=== PATIENT | male | born 1960 | race Caucasian/White ===

== ENCOUNTER 2017-05-22 19:33 | Emergency (ER) | payer OTHER, SELFPAY ==
[2017-05-22 19:33] VITALS: BP 149/76; PULSE 67; RESP 16; TEMP 36.1; O2SAT 96; BMI 50.2
[2017-05-22] MEDS: Diphth,Pertuss(Acell),Tet Vac 0.5 ML Vial IM (20:00)
[2017-05-22 20:05] VITALS: RESP 18
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
[2017-05-22 20:29] VITALS: RESP 18
== END 2017-05-22 20:30 | disposition home or self-care (01) ==
LOC: ED 20:15
PROVIDERS: Emergency Provider Emergency Medicine; Family Provider Family Medicine; PCP Family Medicine
DX: S81.812A Laceration without foreign body, left lower leg, initial encounter (principal); E66.9 Obesity, unspecified; I10 Essential (primary) hypertension; W22.8XXA Striking against or struck by other objects, initial encounter; Y93.9 Activity, unspecified; Y92.9 Unspecified place or not applicable; Z79.84 Long term (current) use of oral hypoglycemic drugs; Z79.899 Other long term (current) drug therapy
CPT/HCPCS: 12002; 90715; 99283

== ENCOUNTER → 2017-06-01 13:02 | Outpatient (CLI) | payer OTHER, SELFPAY ==
[2017-06-01 14:27] LABS: ALB/GLOB Ratio 0.8 RATIO (0.9-2.4); AST(SGOT) 22 U/L (15-37); Alanine Aminotransfer ALT/SGPT 30 U/L (16-61); Albumin, Serum 3.1 g/dL (3.2-5.0); Alkaline Phosphatase 83 U/L (45-117); Anion Gap 7 (5-15); BUN 21 mg/dL (7-18); BUN/Creat Ratio 20.2 RATIO (10-20); Calcium,Total 8.3 mg/dL (8.5-10.1); Chloride 101 mmol/L (98-107); Cholesterol 143 mg/dL (200); Creatinine, Serum 1.04 mg/dL (0.70-1.30); EST Glomerular Filtration Rate 78 mL/min (>60); Est Glom Filt Rate - Afr Amer 94 mL/min (>60); Glucose 185 mg/dL (74-106); High Density Lipoprotein 40 mg/dL; Potassium 3.6 mmol/L (3.5-5.1); Protein, Total 7.1 g/dL (6.4-8.2); Sodium Level 140 mmol/L (136-145); Triglycerides 164 mg/dL; Very Low Density Lipoprotein 33 mg/dL (5-40)
== END ==
PROVIDERS: Family Provider Family Medicine; PCP Family Medicine; Visit Provider Family Medicine
DX: I10 Essential (primary) hypertension (principal); Z13.220 Encounter for screening for lipoid disorders
CPT/HCPCS: 36415; 80053; 80061

== ENCOUNTER → 2017-06-16 09:04 | Outpatient (CLI) | payer OTHER, SELFPAY | PROVIDERS: Family Provider Family Medicine; PCP Family Medicine; Visit Provider Family Medicine | DX: R19.7 Diarrhea, unspecified (principal) | CPT/HCPCS: 87177; 87209; 87493; 87506 ==

== ENCOUNTER → 2018-05-27 15:08 | Outpatient (CLI) | payer OTHER, SELFPAY ==
[2018-05-27 16:43] LABS: ALB/GLOB Ratio 0.8 RATIO (0.9-2.4); AST(SGOT) 27 U/L (15-37); Alanine Aminotransfer ALT/SGPT 36 U/L (16-61); Albumin, Serum 3.2 g/dL (3.2-5.0); Alkaline Phosphatase 82 U/L (45-117); Anion Gap 4 (5-15); BUN 21 mg/dL (7-18); Calcium,Total 8.6 mg/dL (8.5-10.1); Chloride 102 mmol/L (98-107); Cholesterol 140 mg/dL (200); EST Glomerular Filtration Rate 81 mL/min (>60); Est Glom Filt Rate - Afr Amer 98 mL/min (>60); Glucose 157 mg/dL (74-106); High Density Lipoprotein 39 mg/dL; Potassium 3.6 mmol/L (3.5-5.1); Protein, Total 7.2 g/dL (6.4-8.2); Sodium Level 138 mmol/L (136-145); Triglycerides 131 mg/dL; Very Low Density Lipoprotein 26 mg/dL (5-40)
[2018-05-27 16:45] LABS: Hemoglobin A1c 7.3 % (4.2-6.3)
== END ==
PROVIDERS: Family Provider Family Medicine; PCP Family Medicine; Referring Provider Family Medicine; Visit Provider Family Medicine
DX: E11.65 Type 2 diabetes mellitus with hyperglycemia (principal); I10 Essential (primary) hypertension; Z13.220 Encounter for screening for lipoid disorders
CPT/HCPCS: 36415; 80053; 80061; 83036

== ENCOUNTER → 2018-10-13 | Outpatient (CLI) | payer OTHER, SELFPAY | END | disposition home or self-care (01) | LOC: LABSPEC 15:53 | PROVIDERS: Family Provider Family Medicine; PCP Family Medicine; Referring Provider Otolaryngology Otolaryngology/Facial Plastic Surgery; Visit Provider Otolaryngology Otolaryngology/Facial Plastic Surgery | DX: J32.9 Chronic sinusitis, unspecified (principal) | CPT/HCPCS: 87070; 87205 ==

== ENCOUNTER → 2018-12-22 11:57 | Outpatient (CLI) | payer OTHER, SELFPAY ==
[2018-12-22 13:51] LABS: Anion Gap 5 (5-15); BUN 23 mg/dL (7-18); Chloride 102 mmol/L (98-107); Creatinine, Serum 0.96 mg/dL (0.70-1.30); EST Glomerular Filtration Rate 85 mL/min (>60); Est Glom Filt Rate - Afr Amer 103 mL/min (>60); Glucose 143 mg/dL (74-106); Potassium 3.5 mmol/L (3.5-5.1); Sodium Level 138 mmol/L (136-145)
[2018-12-22 13:56] LABS: Hemoglobin A1c 7.1 % (4.2-6.3)
== END ==
PROVIDERS: Family Provider Family Medicine; PCP Family Medicine; Referring Provider Family Medicine; Visit Provider Family Medicine
DX: I10 Essential (primary) hypertension (principal); E11.65 Type 2 diabetes mellitus with hyperglycemia
CPT/HCPCS: 36415; 80048; 83036

== ENCOUNTER → 2018-12-24 15:29 | Outpatient (CLI) | payer OTHER, SELFPAY ==
--- NOTE | 2018-12-24 15:32 | CT_ITS ---
STUDY: CT BRAIN AND SINUSES WITHOUT CONTRAST REASON FOR EXAM: Male, 58 years old. Sinusitis, right ear pain. RADIATION DOSAGE (If Supplied By Facility): CTDIvol = ( 29.38 ) mGy, DLP = ( 429.92 ) mGycm TECHNIQUE: Transaxial CT imaging of the brain was performed without administration of contrast. Individualized dose optimization techniques were used for this CT. COMPARISON: No relevant priors. FINDINGS: CT BRAIN Note to be made that only anterior and mid inferior aspect of the brain is included in the [id number]. Within the limits of the study, the visualized soft tissue structures are normal. Normal visualized calvarium. Normal size of the visualized ventricles and extra-axial spaces for the patient's age. Normal visualized white matter tracts of the cerebral hemispheres. Normal visualized basal ganglia and thalami. Normal visualized brainstem. Normal visualized cerebellum. There is no intracranial hemorrhage. There are no findings of an acute ischemic infarction. CT SINUSES Post Surgical Changes: None. Frontal Sinus and Recess: Normal aeration without mucosal inflammatory disease. Ethmoidal Sinuses: Normal aeration without mucosal inflammatory disease. Maxillary Sinuses: There is minimal thickening of the inferior wall of the bilateral maxillary sinuses of indeterminate clinical significance. Otherwise normal aeration without mucosal inflammatory disease. Ostiomeatal Complex: Clear. Sphenoid Sinus: Normal aeration without mucosal inflammatory disease. Sphenoethmoidal Recess: Clear. Nasal Turbinate (Right): Middle Turbinate (Right): Normal. Middle Turbinate (Left): Normal. Inferior Turbinate (Right): Normal. Inferior Turbinate (Left): Normal. Nasal Septum: Midline. Nasal Airway: Clear. Cribiform Plate / Anterior Cranial Fossa: Normal. Orbits: Normal. CT/Sinus/Facial Bone IMPRESSION: Minimal residual mucosal disease of the maxillary sinuses along the inferior wall, otherwise normal enhanced CT scan of the brain and sinuses. Electronically Signed: Kamille Soria MD at 3:59 EDT , Service support ,
== END ==
PROVIDERS: Family Provider Family Medicine; PCP Family Medicine; Referring Provider Otolaryngology Otolaryngology/Facial Plastic Surgery; Visit Provider Otolaryngology Otolaryngology/Facial Plastic Surgery
DX: J32.9 Chronic sinusitis, unspecified (principal)
CPT/HCPCS: 70486

== ENCOUNTER 2020-02-01 00:30 | Emergency (ER) | payer OTHER, SELFPAY ==
[2020-02-01 00:31] VITALS: BP 157/69; PULSE 86; RESP 18; TEMP 36.1; O2SAT 94; BMI 47.6
--- NOTE | 2020-02-01 00:58 | ED.VIS.GEN ---
History of Present Illness Chief Complaint: Laceration Informant: Patient Narrative: Patient is a 59-year-old male with a past medical history of hypertension, diabetes who presents to the emergency department for laceration to tip of left pinky finger. He states he was opening a drawer whenever he cut his finger on something on the bottom of the door. Bleeding is controlled prior to arrival in emergency department. He is not on blood thinners. He feels like the tip of his finger is mildly numb. He denies any loss of range of motion. He denies any other injury. States his last tetanus shot was 2 years ago. Past Medical History - Allergies and Home Meds Allergies/Adverse Reactions: Allergies cefuroxime axetil [From Ceftin] Allergy (Verified 02/01/20 00:33) Swelling Sulfa (Sulfonamide Antibiotics) Allergy (Verified 02/01/20 00:33) Swelling erythromycin base Adverse Reaction (Verified 02/01/20 00:33) Diarrhea Penicillins Adverse Reaction (Verified 02/01/20 00:33) Unknown Tetracyclines Adverse Reaction (Verified 02/01/20 00:33) THRUSH CATS,DUST MITES Adverse Reaction (Uncoded 02/01/20 00:33) COUGH ALLERGY SX Primary Care Physician: Alberto Pino MD [Primary Care Provider] - 5-7 Days Prior records reviewed: Yes Smoking Status: Former smoker Review of Systems All systems negative except as indicated General: Denies: Chills, Fever, Sweats ENT: Denies: Sore throat Respiratory: Denies: Dyspnea, Cough, Dyspnea on exertion Gastrointestinal: Denies: Abdominal pain, Nausea, Vomiting Musculoskeletal: Denies: Back pain, Extremity Pain Skin: Reports: Wounds. Denies: Rash Neurological: Reports: Numbness. Denies: Headache, Weakness Physical Exam Vital Signs/Narrative: Vital Signs Temp Pulse Resp BP Pulse Ox 02/01/20 00:31 97.0 F L 86 18 157/69 H 94 Inital Vital Signs reviewed: Yes General: Well nourished, Well developed, No Acute Distress Head: Normocephalic, Atraumatic Eyes: Perrl, EOMI ENT: Moist mucous membranes, No rhinorrhea Neck: Supple, Nontender Cardiovascular: Regular rate Respiratory: No distress Abdomen: Nondistended Extremities: Nontender, No edema Skin: Normal color, No rash, - - 0.5 cm laceration to tip of left pinky finger. No active bleeding. Depth is 1 to 2 mm. No foreign body appreciated Neurological: Alert, Oriented x3, Normal Strength, Normal Sensation Psychological: Normal affect, Normal Mood Diagnostic/Tx/Re-eval - Medical Decision Making Patient presents to the emerge department for laceration to left pinky finger. He is up-to-date on tetanus. This was repaired with Dermabond. He did get close closure. He is to monitor for evidence of infection. Will discharge home in stable condition. Warning signs and symptoms for which return to the emerge department occluding evidence of in infection are reviewed. He understands and is agreeable this plan. He is discharged home in stable condition. All questions answered. ED Disposition - Plan for ED Patient: Disposition: Home or Assisted Living Diagnosis: Finger laceration Instructions: ED Laceration, Extremity: Skin Glue Referrals: Alberto Pino MD [Primary Care Provider] - 5-7 Days
== END 2020-02-01 01:22 | disposition home or self-care (01) ==
LOC: ED 01:15
PROVIDERS: Emergency Provider Emergency Medicine; PCP Family Medicine
DX: S61.217A Laceration without foreign body of left little finger without damage to nail, initial encounter (principal); W26.9XXA Contact with unspecified sharp object(s), initial encounter; Y93.9 Activity, unspecified; Y92.9 Unspecified place or not applicable; I10 Essential (primary) hypertension; E11.9 Type 2 diabetes mellitus without complications; Z79.84 Long term (current) use of oral hypoglycemic drugs; Z79.899 Other long term (current) drug therapy; Z87.891 Personal history of nicotine dependence
CPT/HCPCS: 12001; 99282

== ENCOUNTER 2020-03-15 12:17 | Outpatient (RCR) | payer OTHER, SELFPAY ==
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
--- NOTE | 2020-05-07 14:24 | HP.PT.NRP ---
SOL LAMBERT was seen in my office for initial evaluation on 03/15/20. The following Plan of Care was established for this patient: Initial Frequency: 1x/Week Initial Duration: 6 Weeks Patient/Client Instruction: Educate patient on: Benefits of Fitness Program Therapeutic Exercise to Include: Strength training, Endurance training, Body mechanics, Postural training, Neuromotor development, Passive ROM, Active ROM, Scapular Strength/Stabilization For the Purpose of:: To improve muscle performance and motor function This patient was last seen in our office . Pertinent comments regarding their Physical therapy will appear below: Patient has not attended PT in over 30 days- appropriate to be d/c and return to MD for further evaluation. At this point I will be discontinuing this patient from physical therapy. I would be happy to see this patient again in the future if found appropriate by the physician. Thank you! JACQEULINE FitzgeraldT
== END 2020-03-15 19:00 | disposition home or self-care (01) ==
LOC: PT 12:17
PROVIDERS: PCP Family Medicine; Referring Provider Orthopaedic Surgery; Visit Provider Orthopaedic Surgery
DX: M75.21 Bicipital tendinitis, right shoulder (principal); M75.51 Bursitis of right shoulder
CPT/HCPCS: 97110; 97162

== ENCOUNTER → 2020-05-01 11:13 | Outpatient (CLI) | payer OTHER, SELFPAY ==
[2020-05-01 11:58] LABS: Hemoglobin A1c 7.7 % (3.8-5.6)
[2020-05-01 12:24] LABS: ALB/GLOB Ratio 0.8 RATIO (0.9-2.4); AST(SGOT) 30 U/L (15-37); Alanine Aminotransfer ALT/SGPT 34 U/L (16-61); Alkaline Phosphatase 94 U/L (45-117); Anion Gap 5 (5-15); BUN 25 mg/dL (7-18); BUN/Creat Ratio 22.7 RATIO (10-20); Calcium,Total 9.3 mg/dL (8.5-10.1); Chloride 102 mmol/L (98-107); Cholesterol 152 mg/dL (200); EST Glomerular Filtration Rate 72 mL/min (>60); Est Glom Filt Rate - Afr Amer 88 mL/min (>60); Glucose 236 mg/dL (74-106); High Density Lipoprotein 43 mg/dL; Potassium 4.1 mmol/L (3.5-5.1); Sodium Level 138 mmol/L (136-145); Triglycerides 127 mg/dL; Very Low Density Lipoprotein 25 mg/dL (5-40)
== END ==
PROVIDERS: PCP Family Medicine; Referring Provider Family Medicine; Visit Provider Family Medicine
DX: E11.65 Type 2 diabetes mellitus with hyperglycemia (principal)
CPT/HCPCS: 36415; 80053; 80061; 83036

== ENCOUNTER → 2020-08-01 11:14 | Outpatient (CLI) | payer OTHER, SELFPAY ==
[2020-08-01 13:02] LABS: ALB/GLOB Ratio 0.8 RATIO (0.9-2.4); AST(SGOT) 37 U/L (15-37); Alanine Aminotransfer ALT/SGPT 46 U/L (16-61); Albumin, Serum 3.2 g/dL (3.2-5.0); Alkaline Phosphatase 88 U/L (45-117); Anion Gap 6 (5-15); BUN 22 mg/dL (7-18); BUN/Creat Ratio 19.5 RATIO (10-20); Calcium,Total 9.3 mg/dL (8.5-10.1); Chloride 101 mmol/L (98-107); Creatinine, Serum 1.13 mg/dL (0.70-1.30); EST Glomerular Filtration Rate 70 mL/min (>60); Est Glom Filt Rate - Afr Amer 85 mL/min (>60); Globulin 4.2 g/dL (2.2-4.2); Glucose 233 mg/dL (74-106); Potassium 3.7 mmol/L (3.5-5.1); Protein, Total 7.4 g/dL (6.4-8.2); Sodium Level 137 mmol/L (136-145)
[2020-08-01 13:07] LABS: Hemoglobin A1c 8.4 % (3.8-5.6)
== END ==
PROVIDERS: PCP Family Medicine; Referring Provider Family Medicine; Visit Provider Family Medicine
DX: I10 Essential (primary) hypertension (principal); E11.65 Type 2 diabetes mellitus with hyperglycemia
CPT/HCPCS: 36415; 80053; 83036

== ENCOUNTER 2020-09-24 10:50 | Emergency (ER) | payer OTHER, SELFPAY ==
[2020-09-24 10:54] VITALS: BP 162/62; PULSE 63; RESP 17; TEMP 36.7; O2SAT 97; BMI 48.0
--- NOTE | 2020-09-24 10:57 | NURSING ---
NO OLD EKGS
--- NOTE | 2020-09-24 11:34 | RAD_ITS ---
STUDY: X-RAY CHEST REASON FOR EXAM: Male, 60 years old. Chest pain TECHNIQUE: Single AP portable view of the chest. COMPARISON: None. FINDINGS: EKG electrodes are seen. Elevation of the right hemidiaphragm. The lungs are clear. There is no demonstrated pleural abnormality. There is borderline cardiomegaly. Normal mediastinum and hunter. Normal visualized pulmonary arteries. Normal visualized aortic arch and descending thoracic aorta. Normal visualized thoracic spine. Normal visualized ribs, clavicles, and shoulders. There is no demonstrated abnormality of the visualized soft tissue structures of the upper abdomen. RAD/Chest 1 View (Portable) IMPRESSION: Borderline cardiomegaly. Elevation of the right hemidiaphragm. Electronically Signed: Kurtis Stewart MD at 12:55 EDT , Service support ,
--- NOTE | 2020-09-24 11:34 | EKG12_ITS ---
Test Reason : ABNORMAL EKG Blood Pressure : / mmHG Vent. Rate : 055 BPM Atrial Rate : 055 BPM P-R Int : 238 ms QRS Dur : 168 ms QT Int : 496 ms P-R-T Axes : 062 -27 043 degrees QTc Int : 474 ms Sinus bradycardia with 1st degree A-V block Left bundle branch block Abnormal ECG Confirmed by ELLIE HAQUE, STEPHANIE ([id number]), manager editorial [place] ([id number]) on 09/27/2020 10:04:56 AM Referred By: NICOLE/RENETTA Confirmed By:STEPHANIE ARGUETA MD
[2020-09-24 12:17] LABS: Absolute Lymphocyte Count 2.54 X10^3/uL (0.83-4.51); Absolute Neutrophil Count 7.2 X10^3/uL (2.0-7.7); Basophil# 0.03 X10^3/uL; Basophil% 0.3 % (0-1); Eosinophil# 0.06 X10^3/uL; Eosinophils% 0.6 % (0-5); Hematocrit 44.1 % (40-54); Lymphocyte # 2.54 X10^3/ul (0.83-4.51); Lymphocyte % 24.2 % (19-41); Mean Corp Hgb Conc 31.7 g/dL (32-36); Mean Corpuscular Hgb 26.4 pg (27.0-32.0); Mean Corpuscular Volume 83.1 fL (80-94); Mean Platelet Vol. 11.6 fl (6.2-12.0); Monocyte# 0.66 X10^3/uL; Monocyte% 6.3 % (0-10); NRBC Flagged by Analyzer 0 % (0-5); Neutrophil # 7.17 X10^3/uL (2.7-7.7); Neutrophil % 68.2 % (47-70); Platelet Count 179 K/mm3 (150-450); RBC Distribution Width CV 13.6 % (11.6-14.6); RBC Distribution Width SD 41.2 fl (35.1-43.9); Red Blood Count 5.31 M/mm3 (4.6-6.2); White Blood Count 10.5 K/mm3 (4.4-11.0)
[2020-09-24 12:32] LABS: ALB/GLOB Ratio 0.8 RATIO (0.9-2.4); AST(SGOT) 30 U/L (15-37); Alanine Aminotransfer ALT/SGPT 38 U/L (16-61); Albumin, Serum 3.1 g/dL (3.2-5.0); Alkaline Phosphatase 64 U/L (45-117); Anion Gap 7 (5-15); BUN 11 mg/dL (7-18); BUN/Creat Ratio 12.2 RATIO (10-20); Calcium,Total 8.6 mg/dL (8.5-10.1); Chloride 100 mmol/L (98-107); EST Glomerular Filtration Rate 91 mL/min (>60); Est Glom Filt Rate - Afr Amer 110 mL/min (>60); Globulin 3.7 g/dL (2.2-4.2); Glucose 186 mg/dL (74-106); Potassium 3.2 mmol/L (3.5-5.1); Protein, Total 6.8 g/dL (6.4-8.2); Sodium Level 137 mmol/L (136-145); Troponin-I HS 14.7 pg/mL (3.0-78.5)
[2020-09-24 14:00] VITALS: BP 134/49; PULSE 55; RESP 20; O2SAT 96
[2020-09-24 14:25] LABS: Troponin-I HS 15.2 pg/mL (3.0-78.5)
[2020-09-24 14:56] VITALS: BP 151/51; PULSE 48; RESP 19; O2SAT 93
--- NOTE | 2020-09-24 15:48 | EDS_ITS ---
HPI History of Present Illness Chief Complaint: Chest Other Detail of Chief Complaint: Abnormal EKG Informant: patient Onset/Context/Timing Onset: Today Relieved by: Nothing Narrative Narrative: Patient presents with abnormal EKG that was noticed today. Patient states he was scheduled to have a colonoscopy today. Patient states he underwent the bowel prep over the last couple days. Patient states that he had an EKG done prior to the colonoscopy which showed a left bundle branch block pattern. Patient states he did have an episode of nausea and vomiting yesterday after taking medications for his bowel prep. Patient states he has been having some diarrhea due to the bowel prep. Patient states he also had an episode where he had dizziness that lasted a few minutes. Patient denies any chest pain or shortness of breath. [facility] Medical History Diabetes mellitus Flat feet HTN (hypertension) hx left foot fracture Home Medications hydrochlorothiazide 25 mg PO DAILY 04/18/15 [History Last Taken Unknown] lisinopril 20 mg PO DAILY 04/18/15 [History Last Taken Unknown] metformin 500 mg PO DAILY 04/18/15 [History Last Taken Unknown] potassium citrate 10 meq PO PRN PRN 04/18/15 [History Last Taken Unknown] sitagliptin 25 mg PO DAILY 02/01/20 [History Last Taken Unknown] ascorbic acid 100 mg-elderberry fruit 50 mg chewable tablet 1 tab PO DAILY 03/13/20 [History Last Taken Unknown] cholecalciferol (vitamin D3) 10 mcg (400 unit) capsule 10 mcg PO DAILY 03/13/20 [History Last Taken Unknown] Allergy/AdvReac Type Severity Reaction Status Date / Time cefuroxime axetil Allergy Swelling Verified 09/24/20 12:06 [From Ceftin] Sulfa (Sulfonamide Allergy Swelling Verified 09/24/20 12:06 Antibiotics) erythromycin base AdvReac Diarrhea Verified 09/24/20 12:06 Penicillins AdvReac Unknown Verified 09/24/20 12:06 Tetracyclines AdvReac THRUSH Verified 09/24/20 12:06 CATS,DUST MITES AdvReac COUGH Uncoded 09/24/20 12:06 ALLERGY SX Surgical History History of biopsy (~1991) History of placement of ear tubes (~1991) History of tonsillectomy Social History Smoking Status: Former smoker ROS ROS ED Constitutional Constitutional ED: Denies chills or fever(s) Eyes Eyes: Denies blurry vision or change in vision ENT ENT ED: Denies rhinorrhea or sore throat Cardiovascular Cardiovascular: Denies chest pain or palpitations Respiratory/Chest Respiratory/Chest: Denies cough or dyspnea Gastrointestinal Gastrointestinal: Reports diarrhea, nausea and vomiting Genitourinary Genitourinary ED: Denies dysuria or hematuria Musculoskeletal Musculoskeletal: Reports neck pain; Denies back pain Integumentary Denies abscess or rash Neurologic Neurologic: Denies headache(s) or weakness Allergic/Immunologic Allergic/Immunologic ED: Denies mouth swelling or urticaria EXAM Physical Exam Const Vital Signs: 09/24/20 10:54 09/24/20 11:57 09/24/20 14:00 Temperature 98.1 F Temperature Source Temporal Pulse Rate 63 55 L Respiratory Rate 17 20 H Respiratory Effort Normal Non-Labored Respiratory Pattern Normal Blood Pressure 162/62 H 134/49 H Blood Pressure Mean 95 77 Pulse Ox 97 96 Oxygen Delivery Method Room Air 09/24/20 14:56 Temperature Temperature Source Pulse Rate 48 L Respiratory Rate 19 H Respiratory Effort Respiratory Pattern Blood Pressure 151/51 H Blood Pressure Mean 84 Pulse Ox 93 Oxygen Delivery Method Room Air Positive well nourished, well developed and obese General Appearance ED: well developed Nutritional Appearance: obese HEENT Reports moist mucous membranes Neck supple and no JVD Resp normal respiratory effort and clear to auscultation bilaterally Cardio regular rate, regular rhythm and no murmurs GI normal to inspection, nondistended, normoactive bowel sounds and non-tender Palpation: soft Extremity normal to inspection General Extremety ED: Negative for edema or tenderness General Extremity: Negative for edema Neuro oriented x3, CN's II-XII intact bilaterally and no sensory deficits noted Sensorium / Orientation: alert Motor Exam: strength 5/5 throughout Psych mental status grossly normal Skin no rashes or lesions noted MDM MDM MDM Narrative Medical decision making narrative: EKG was obtained. On my interpretation, there is sinus bradycardia with a rate of 55. There is a first-degree AV block. There is a left bundle branch block pattern. There are no acute ST or T wave changes. There are no prior EKGs available for comparison. CBC and comprehensive metabolic profile were within normal limits with the exception of a mild hypokalemia of 3.2. High-sensitivity troponin was 14.7 initially. Repeat high-sensitivity troponin 2 hours later was 15.2. Portable 1 view chest x-ray was obtained. On my interpretation, lung puga are clear. There is elevation of the right hemidiaphragm. There is borderline cardiomegaly. Bony thorax is normal. There is no acute process noted. Radiologist also interpreted the x-ray and agrees. Patient was advised of his findings. Patient was given a dose of oral potassium here. Patient was instructed to follow-up with his primary care physician in 5 to 7 days. Patient was instructed to get his colonoscopy rescheduled. Patient understood and was agreeable with the plan. All questions were answered. Lab Data Attestation: I reviewed the patient's lab results. Labs: Laboratory Results - last 24 hr 09/24/20 09/24/20 09/24/20 12:00 12:00 14:01 WBC 10.5 RBC 5.31 Hgb 14.0 Hct 44.1 MCV 83.1 MCH 26.4 L MCHC 31.7 L RDW Std Deviation 41.2 RDW Coeff of Pitor 13.6 Plt Count 179 MPV 11.6 Immature Gran % (Auto) 0.400 Neut % (Auto) 68.2 Lymph % (Auto) 24.2 [place] % (Auto) 6.3 Eos % (Auto) 0.6 Baso % (Auto) 0.3 Absolute Neuts (auto) 7.2 Absolute Lymphs (auto) 2.54 Nucleated RBC % 0 Sodium 137 Potassium 3.2 L Chloride 100 Carbon Dioxide 30.0 Anion Gap 7 BUN 11 Creatinine 0.90 Estim Creat Clear Calc 89.00 Est GFR (MDRD) Af Amer 110 Est GFR (MDRD) Non-Af 91 BUN/Creatinine Ratio 12.2 Glucose 186 H Calcium 8.6 Total Bilirubin 0.50 AST 30 ALT 38 Alkaline Phosphatase 64 Troponin I High Sens 14.7 15.2 Total Protein 6.8 Albumin 3.1 L Globulin 3.7 Albumin/Globulin Ratio 0.8 L Radiography Chest X-Ray - ED: 1 View, Read by ED Physician, Read by Radiologist and Cardiomegaly Diagnostic Testing: Radiology Impression Chest X-Ray 09/24/20 11:34 IMPRESSION: Borderline cardiomegaly. Elevation of the right hemidiaphragm. Electronically Signed: Kurtis Stewart MD at 12:55 EDT , Service support , EKG Initial EKG: Attestation: I personally reviewed and interpreted this EKG as follows: Interpretation: Sinus Bradycardia (55) and LBBB Prior EKG tracings: not available for review Discharge Plan Triage Chief Complaint: Chest Other ED Provider: Darin Maciel Dx/Rx/DC Orders Clinical Impression: Hypokalemia Instructions: ED Hypokalemia Prescriptions: No Action ascorbic acid-elderberry fruit [Airborne (elderberry)] 100-50 mg tablet,chewable 1 tab PO DAILY RF: 0 cholecalciferol (vitamin D3) 10 mcg (400 unit) capsule 10 mcg PO DAILY RF: 0 metformin 500 MG tablet 500 mg PO DAILY RF: 0 lisinopril 20 MG tablet 20 mg PO DAILY RF: 0 potassium citrate 10 MEQ tablet extended release 10 meq PO PRN PRN (Reason: FOR SUPPLEMENT) RF: 0 hydrochlorothiazide 25 MG tablet 25 mg PO DAILY RF: 0 sitagliptin 25 MG tablet 25 mg PO DAILY RF: 0 Primary Care Provider: Bernardo Coronel Referrals: Bernardo Coronel MD [Primary Care Provider] - 3-5 Days Disposition Disposition: Home, Self Care
[2020-09-24] MEDS: Potassium Chloride Oral Tablet 20 MEQ 40 MEQ PO (15:53)
[2020-09-24 16:23] VITALS: BP 124/90; PULSE 55; RESP 17; O2SAT 95
== END 2020-09-24 16:23 | disposition home or self-care (01) ==
PROVIDERS: Emergency Provider Emergency Medicine; PCP Family Medicine
DX: E87.6 Hypokalemia (principal); I44.7 Left bundle-branch block, unspecified; I44.0 Atrioventricular block, first degree; E66.9 Obesity, unspecified; Z68.42 Body mass index [BMI] 45.0-49.9, adult; I10 Essential (primary) hypertension; E11.9 Type 2 diabetes mellitus without complications; Z79.84 Long term (current) use of oral hypoglycemic drugs; Z79.899 Other long term (current) drug therapy; Z87.891 Personal history of nicotine dependence
CPT/HCPCS: 71045; 80053; 84484; 85025; 93005; 99285; A4216

== ENCOUNTER 2021-02-18 15:02 | Outpatient (CLI) | payer OTHER, SELFPAY ==
[2021-02-18 15:33] VITALS: BP 149/70; PULSE 89; RESP 18; TEMP 37.2; O2SAT 91; BMI 45.9
[2021-02-18] MEDS: 0.9% Saline Lock 10 ML Syringe IV (15:37)
[2021-02-18 16:07] VITALS: BP 125/68; PULSE 71; RESP 16; TEMP 37.2; O2SAT 93
[2021-02-18 17:07] VITALS: BP 115/65; PULSE 84; RESP 16; TEMP 36.8; O2SAT 100
== END 2021-02-18 17:07 | disposition home or self-care (01) ==
LOC: MS3OUT 15:02 → MS3 15:04
PROVIDERS: PCP Family Medicine; Visit Provider Nurse Practitioner Adult Health
DX: Z23 Encounter for immunization (principal); U07.1 COVID-19
CPT/HCPCS: J7050; M0245; Q0245; A4216

== ENCOUNTER 2021-02-20 12:44 | Inpatient (IN) | payer OTHER, SELFPAY ==
[2021-02-20] VITALS (15 sets, daily range): BP systolic 125–145; BP diastolic 56–100; PULSE 71–104; RESP 16–20; TEMP 36.6–37.8; O2SAT 83–97; BMI 47.2; BMI 44.4
--- NOTE | 2021-02-20 13:27 | EKG12_ITS ---
Test Reason : SOB Blood Pressure : / mmHG Vent. Rate : 088 BPM Atrial Rate : 088 BPM P-R Int : 222 ms QRS Dur : 164 ms QT Int : 438 ms P-R-T Axes : 068 -39 080 degrees QTc Int : 529 ms Sinus rhythm with 1st degree A-V block Left axis deviation Left ventricular hypertrophy with QRS widening and repolarization abnormality Lateral infarct , age undetermined Abnormal ECG Confirmed by JIMMIE HAQUE, SEVERO ([id number]), editor city [place] ([id number]) on 02/26/2021 9:24:07 AM Referred By: JOSEFINA Confirmed By:SEVERO SAMUEL MD
[2021-02-20 13:38] LABS: Absolute Lymphocyte Count 2.43 X10^3/uL (0.83-4.51); Absolute Neutrophil Count 7.9 X10^3/uL (2.0-7.7); Basophil# 0.03 X10^3/uL; Basophil% 0.3 % (0-1); Eosinophil# 0.02 X10^3/uL; Eosinophils% 0.2 % (0-5); Hematocrit 42.2 % (40-54); Hemoglobin 13.6 g/dL (13.0-16.5); Lymphocyte # 2.43 X10^3/ul (0.83-4.51); Lymphocyte % 21.7 % (19-41); Mean Corp Hgb Conc 32.2 g/dL (32-36); Mean Corpuscular Hgb 25.9 pg (27.0-32.0); Mean Corpuscular Volume 80.4 fL (80-94); Mean Platelet Vol. 10.4 fl (6.2-12.0); Monocyte# 0.68 X10^3/uL; Monocyte% 6.1 % (0-10); NRBC Flagged by Analyzer 0 % (0-5); Neutrophil # 7.91 X10^3/uL (2.7-7.7); Neutrophil % 70.7 % (47-70); POSITIVE MORPHOLOGY YES; Platelet Count 317 K/mm3 (150-450); RBC Distribution Width CV 14.3 % (11.6-14.6); RBC Distribution Width SD 41.9 fl (35.1-43.9); Red Blood Count 5.25 M/mm3 (4.6-6.2); White Blood Count 11.2 K/mm3 (4.4-11.0)
--- NOTE | 2021-02-20 13:40 | RAD_ITS ---
STUDY: X-RAY CHEST REASON FOR EXAM: Male, 60 years old. Bilateral rales, hypoxia and positive Covid test TECHNIQUE: Single AP portable view of the chest. COMPARISON: Comparison is made with prior study dated 09/24/2020. FINDINGS: EKG electrodes are seen. Bilateral pulmonary infiltrates worse in the left hemithorax. There is no demonstrated pleural abnormality. Normal size heart. Normal mediastinum and hunter. Normal visualized pulmonary arteries. Normal visualized aortic arch and descending thoracic aorta. Normal visualized thoracic spine. Normal visualized ribs, clavicles, and shoulders. There is no demonstrated abnormality of the visualized soft tissue structures of the upper abdomen. RAD/Chest 1 View (Portable) IMPRESSION: Bilateral pulmonary infiltrates worse in the left hemithorax. Electronically Signed: Kurtis Stewart MD at 13:54 EST , Service support ,
[2021-02-20 13:41] LABS: Differential Indicated SCAN CRITERIA MET
[2021-02-20 13:46] LABS: ALB/GLOB Ratio 0.4 RATIO (0.9-2.4); AST(SGOT) 56 U/L (15-37); Alanine Aminotransfer ALT/SGPT 44 U/L (16-61); Albumin, Serum 2.2 g/dL (3.2-5.0); Alkaline Phosphatase 68 U/L (45-117); Anion Gap 11 (5-15); BUN 19 mg/dL (7-18); BUN/Creat Ratio 16.5 RATIO (10-20); Calcium,Total 9.1 mg/dL (8.5-10.1); Chloride 93 mmol/L (98-107); Creatinine, Serum 1.15 mg/dL (0.70-1.30); EST Glomerular Filtration Rate 69 mL/min (>60); Est Glom Filt Rate - Afr Amer 83 mL/min (>60); Estimated Creatinine Clearance 69.65 ml/min; Globulin 5.3 g/dL (2.2-4.2); Glucose 282 mg/dL (74-106); Potassium 3.3 mmol/L (3.5-5.1); Protein, Total 7.5 g/dL (6.4-8.2); Sodium Level 132 mmol/L (136-145)
[2021-02-20 13:49] LABS: Lactic Acid 3.6 mmol/L (0.4-1.9)
[2021-02-20 14:13] LABS: Atypical Lymphocyte RARE %; Platelet Estimate ADEQUATE (ADEQ); Red Cell Morphology NORM C+C NORMAL (NORM C&C)
--- NOTE | 2021-02-20 14:23 | CPS ---
50% Venti mask put on per Dr. Pedroza
[2021-02-20] MEDS: dexAMETHasone 4 MG Tablet 6 MG PO (14:24)
--- NOTE | 2021-02-20 14:33 | ED.VIS.DYS ---
HPI History of Present Illness Chief Complaint: Shortness of Breath Detail of Chief Complaint: Increase shortness of breath. Informant: patient Onset/Context/Timing Onset: Days (Onset of illness February 08) Context: gradual Timing: Continuous and Waxes and wanes Quality: Positive for Dyspnea on exertion Current Severity: Moderate Maximum Severity: Severe Worsened by: Exertion and Coughing Relieved by: Nothing Associated Symptoms cough, fever, sore throat, subjective, chills and clear sputum Chest Pain: Positive for None Narrative Narrative: Patient is a 60-year-old male with history of hypertension, type 2 diabetes with an A1c of greater than 9 who presents because of trouble breathing. His symptoms started on February 08. He had a Covid test at [facility] on February 12. Results were positive and patient was made aware of results on February 15. He is not presently on Decadron. He is not on home oxygen. He was given a pulse ox to take home. His pulse ox read 70%. His suggested that he come to the hospital. He is not been vaccinated. He denies fever or chills. He does report mild bifrontal headache. He denies loss of taste or smell. His cough is productive of clear-colored sputum. He denies any vomiting. He denies dysuria, frequency, urgency or hematuria. He denies polyuria polydipsia PE Risk Factors: Negative for Cancer, OCP + Smoking + > 35, Prior DVT or PE, Recent immobilization, Recent surgery and Recent travel Prior similar symptoms: No Recent Illness/Hospitalization: Yes [facility] Medical History (Updated 02/20/21 @ 14:[address] Dale Pedroza MD) Diabetes mellitus Flat feet HTN (hypertension) hx left foot fracture Home Medications hydrochlorothiazide 25 mg PO DAILY 04/18/15 [History Last Taken Unknown] lisinopril 20 mg PO DAILY 04/18/15 [History Last Taken Unknown] metformin 500 mg PO BID 04/18/15 [History Last Taken Unknown] potassium citrate 10 meq PO PRN PRN 04/18/15 [History Last Taken Unknown] ascorbic acid 100 mg-elderberry fruit 50 mg chewable tablet 1 tab PO DAILY 03/13/20 [History Last Taken Unknown] cholecalciferol (vitamin D3) 10 mcg (400 unit) capsule 10 mcg PO DAILY 03/13/20 [History Last Taken Unknown] sitagliptin [Januvia] 100 mg PO DAILY 02/20/21 [History Last Taken Unknown] Allergy/AdvReac Type Severity Reaction Status Date / Time house dust mite Allergy Intermediate unknown Verified 02/20/21 12:46 cefuroxime axetil Allergy Swelling Verified 02/20/21 12:46 [From Ceftin] Sulfa (Sulfonamide Allergy Swelling Verified 02/20/21 12:46 Antibiotics) erythromycin base AdvReac Diarrhea Verified 02/20/21 12:46 Penicillins AdvReac Unknown Verified 02/20/21 12:46 Surgical History History of biopsy (~1991) History of placement of ear tubes (~1991) History of tonsillectomy Social History (Updated 02/20/21 @ 14:[address] Dale Pedroza MD) household members: spouse Smoking Status: Former smoker substance use type: does not use ROS ROS ED Constitutional Constitutional ED: Reports chills, fever(s) and weight loss; Denies sweats Eyes Eyes: Denies blurry vision, change in vision or diplopia ENT ENT ED: Reports rhinorrhea; Denies ear pain or sore throat Cardiovascular Cardiovascular: Reports palpitations; Denies chest pain, orthopnea, paroxysmal nocturnal dyspnea or racing heartbeat Respiratory/Chest Respiratory/Chest: Reports cough, dyspnea, dyspnea on exertion and sputum; Denies orthopnea or paroxysmal nocturnal dyspnea Gastrointestinal Gastrointestinal: Reports diarrhea and nausea; Denies abdominal pain, constipation, melena or vomiting Genitourinary Genitourinary ED: Denies dysuria, hematuria or urinary frequency Musculoskeletal Musculoskeletal: Denies arthralgias, myalgias or neck pain Integumentary Denies rash Neurologic Neurologic: Reports headache(s) and weakness; Denies paresthesias Endocrine Endocrinology: Denies polydipsia, polyphagia or polyuria Hematologic/Lymphatic Hematologic/Lymphatic: Denies easy bruising EXAM Physical Exam Const Vital Signs: 02/20/21 12:47 02/20/21 12:50 02/20/21 13:58 Temperature 100.1 F H Temperature Source Oral Pulse Rate 104 H Respiratory Rate 20 H Respiratory Effort Normal Non-Labored Respiratory Depth Normal Respiratory Pattern Normal Blood Pressure 129/56 H Blood Pressure Mean 80 Pulse Ox 84 92 Oxygen Delivery Method Room Air Nasal Cannula Room Air Oxygen Flow Rate (L/min) 3 Fraction of Inspired Oxygen (FIO2) 02/20/21 14:00 02/20/21 14:06 02/20/21 14:23 Temperature 98 F Temperature Source Temporal Pulse Rate 84 Respiratory Rate 19 H Respiratory Effort Respiratory Depth Respiratory Pattern Blood Pressure 145/78 H Blood Pressure Mean 100 Pulse Ox 92 87 91 Oxygen Delivery Method Nasal Cannula Nasal Cannula Venturi Mask Oxygen Flow Rate (L/min) 4 4 12 Fraction of Inspired Oxygen (FIO2) 50 02/20/21 14:27 Temperature Temperature Source Pulse Rate Respiratory Rate Respiratory Effort Respiratory Depth Respiratory Pattern Blood Pressure Blood Pressure Mean Pulse Ox 94 Oxygen Delivery Method Venturi Mask Oxygen Flow Rate (L/min) Fraction of Inspired Oxygen (FIO2) 50 Positive well nourished, well developed and obese General Appearance ED: well developed; Negative for NAD or pallor Nutritional Appearance: obese HEENT Reports TM's clear and dry mucous membranes atraumatic; Negative for tenderness Tympanic Membrane ED: Yes TM's clear Mouth ED: Yes dry mucous membranes Mouth: dry mucous membranes Eyes PERRL and EOMs intact bilaterally General Eye ED: Negative for pale conjunctiva or scleral icterus Neck no lymphadenopathy, supple, no meningeal signs and no JVD Resp No normal respiratory effort and No clear to auscultation bilaterally Auscultation: rales bilateral 2/[address] up Cardio regular rate, S1 normal heart sound, S2 normal heart sound and no murmurs Rate: tachycardic GI non-tender, non-distended and no masses Auscultation: normoactive bowel sounds Palpation: soft; Negative for hepatomegaly or splenomegaly Back/Spine no CVA tenderness and normal to inspection Extremity normal to inspection General Extremety ED: Yes edema; Negative for tenderness General Extremity: edema Neuro oriented x3 and CN's II-XII intact bilaterally [place] Coma Scale: document GCS findings Spontaneous Obeys Commands Oriented 15 Motor Exam: general weakness Psych mental status grossly normal Skin no wounds General Skin Exam: Negative for jaundice or pallor Lesions: no lesions Rashes: no rashes MDM MDM MDM Narrative Medical decision making narrative: Bilateral rales hypoxia suspect patient has Covid pneumonia. He was treated with Decadron. Confirmed that he had a positive test at the home family practice. ABG was obtained. CBC, elect ental and lactate were patient's lactate elevated 3.6 which may be due to his hypoxia. White count is elevated 11.2. Blood sugar is elevated to 82 with a normal CO2 and anion gap. Creatinine is 1.15 with a GFR of 69. Albumin is low at 2.2. Single view portable chest x-ray reveals bilateral interstitial infiltrates predominantly in the periphery consistent with Covid. Patient is required increased oxygen during his stay. He is now on high flow. Patient will be admitted to PCU. Case was discussed with hospitalist will admit patient. Lab Data Attestation: I reviewed the patient's lab results. Labs: Laboratory Results - last 24 hr 02/20/21 02/20/21 02/20/21 13:07 13:07 13:07 WBC 11.2 H RBC 5.25 Hgb 13.6 Hct 42.2 MCV 80.4 MCH 25.9 L MCHC 32.2 RDW Std Deviation 41.9 RDW Coeff of Piotr 14.3 Plt Count 317 MPV 10.4 Immature Gran % (Auto) 1.000 H Neut % (Auto) 70.7 H Lymph % (Auto) 21.7 [place] % (Auto) 6.1 Eos % (Auto) 0.2 Baso % (Auto) 0.3 Absolute Neuts (auto) 7.9 H Absolute Lymphs (auto) 2.43 Nucleated RBC % 0 Differential Comment Atypical Lymphocytes RARE Platelet Estimate ADEQUATE RBC Morphology NORM C+C Sodium 132 L Potassium 3.3 L Chloride 93 L Carbon Dioxide 28.0 Anion Gap 11 BUN 19 H Creatinine 1.15 Estim Creat Clear Calc 69.65 Est GFR (MDRD) Af Amer 83 Est GFR (MDRD) Non-Af 69 BUN/Creatinine Ratio 16.5 Glucose 282 H Lactic Acid 3.6 H* Calcium 9.1 Total Bilirubin 0.70 AST 56 H ALT 44 Alkaline Phosphatase 68 Total Protein 7.5 Albumin 2.2 L Globulin 5.3 H Albumin/Globulin Ratio 0.4 L Radiography Chest X-Ray - ED: 1 View and Read by ED Physician (Bilateral interstitial pneumonia consistent with) Diagnostic Testing: Clinical Impression(s) from Imaging Studies Chest X-Ray 02/20/21 13:40 IMPRESSION: Bilateral pulmonary infiltrates worse in the left hemithorax. Electronically Signed: Kurtis Stewart MD at 13:54 EST , Service support , EKG Initial EKG: Attestation: I personally reviewed and interpreted this EKG as follows: Interpretation: Sinus Rhythm (With first-degree AV block. Ventricular rate is 88. No DC interval is 222 ms. QS duration is prolonged at 164 ms. QT duration is 438 ms. [place] to the left. 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 (History, physical, documentation, discussion with personnel to verify patient's Covid test results, initiation of therapy after interpretation of laboratory results), Discussing w/Consultants and Arranging Admission or Transfer Discharge Plan Triage Chief Complaint: Shortness of Breath ED Provider: Dale Pedroza Dx/Rx/DC Orders Clinical Impression: Acute respiratory failure with hypoxia, Pneumonia due to 2019-nCoV, Hyperglycemia due to type 2 diabetes mellitus Prescriptions: No Action ascorbic acid-elderberry fruit [Airborne (elderberry)] 100-50 mg tablet,chewable 1 tab PO DAILY RF: 0 cholecalciferol (vitamin D3) 10 mcg (400 unit) capsule 10 mcg PO DAILY RF: 0 metformin 500 MG tablet 500 mg PO BID RF: 0 lisinopril 20 MG tablet 20 mg PO DAILY RF: 0 potassium citrate 10 MEQ tablet extended release 10 meq PO PRN PRN (Reason: FOR SUPPLEMENT) RF: 0 hydrochlorothiazide 25 MG tablet 25 mg PO DAILY RF: 0 Januvia 100 mg Tablet 100 mg PO DAILY RF: 0 Primary Care Provider: Bernardo Coronel Referrals: Bernardo Coronel MD [Primary Care Provider] - Disposition Disposition: Acute Care [facility]
[2021-02-20 15:45] LABS: LDH 503 U/L (87-241)
--- NOTE | 2021-02-20 15:45 | PCM.HP.STD ---
HPI - General General Date of Admission: 02/20/21 HPI Narrative SOL LAMBERT, is a 60 M who presents with worsening SOB. His symptoms started on February 08. He had a COVID test at [facility] on February 12. Results were positive and patient was made aware of results on February 15. He is not presently on Decadron and did not take any other therapies such as prednisone course before presenting here. His suggested that he come to the hospital when pulse Ox read in the 70s. His is infected too, and they both received monoclonal antibodies this past Thursday, 3 days ago. The patient does not have any fevers or chills but does have a cough with mild phlegm but no sputum production. The patient does have history of hypertension & poorly controlled diabetes. The patient presented to the ED he had a oxygen saturation of 84% on room air and was put on a Ventimask at 12 L and did well, improving up to 94-96% did not have respiratory distress. CXR with bilateral pneumonia findings. Family history reviewed and positive for hypertension and diabetes in parents. Father with lung cancer. 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 Dale Pedroza MD) Diabetes mellitus Flat feet HTN (hypertension) hx left foot fracture Home Medications hydrochlorothiazide 25 mg PO DAILY 04/18/15 [History Last Taken Unknown] lisinopril 20 mg PO DAILY 04/18/15 [History Last Taken Unknown] metformin 500 mg PO BID 04/18/15 [History Last Taken Unknown] potassium citrate 10 meq PO PRN PRN 04/18/15 [History Last Taken Unknown] ascorbic acid 100 mg-elderberry fruit 50 mg chewable tablet 1 tab PO DAILY 03/13/20 [History Last Taken Unknown] cholecalciferol (vitamin D3) 10 mcg (400 unit) capsule 10 mcg PO DAILY 03/13/20 [History Last Taken Unknown] sitagliptin [Januvia] 100 mg PO DAILY 02/20/21 [History Last Taken Unknown] Allergy/AdvReac Type Severity Reaction Status Date / Time house dust mite Allergy Intermediate unknown Verified 02/20/21 12:46 cefuroxime axetil Allergy Swelling Verified 02/20/21 12:46 [From Ceftin] Sulfa (Sulfonamide Allergy Swelling Verified 02/20/21 12:46 Antibiotics) erythromycin base AdvReac Diarrhea Verified 02/20/21 12:46 Penicillins AdvReac Unknown Verified 02/20/21 12:46 Surgical History History of biopsy (~1991) History of placement of ear tubes (~1991) History of tonsillectomy Social History (Updated 02/20/21 @ 14:[address] Dale Pedroza MD) household members: spouse Smoking Status: Former smoker substance use type: does not use ROS ROS Narrative no f/c, no diarrhea or constipation, no dysuria/hematuria or abd pain. No trouble seeing, hearing, swallowing. No muscle joint or skin problems. Appetite is decreased. He feels dry. No cp or racing. No thyroid problems. + MOLINA, cough, sob, dyspnea Vital Signs Vital Signs Vital Signs: 02/20/21 12:47 02/20/21 12:50 02/20/21 13:58 Temperature 100.1 F H Temperature Source Oral Pulse Rate 104 H Respiratory Rate 20 H Respiratory Effort Normal Non-Labored Respiratory Depth Normal Respiratory Pattern Normal Blood Pressure 129/56 H Blood Pressure Mean 80 Pulse Ox 84 92 Oxygen Delivery Method Room Air Nasal Cannula Room Air Oxygen Flow Rate (L/min) 3 Fraction of Inspired Oxygen (FIO2) 02/20/21 14:00 02/20/21 14:06 02/20/21 14:23 Temperature 98 F Temperature Source Temporal Pulse Rate 84 Respiratory Rate 19 H Respiratory Effort Respiratory Depth Respiratory Pattern Blood Pressure 145/78 H Blood Pressure Mean 100 Pulse Ox 92 87 91 Oxygen Delivery Method Nasal Cannula Nasal Cannula Venturi Mask Oxygen Flow Rate (L/min) 4 4 12 Fraction of Inspired Oxygen (FIO2) 50 02/20/21 14:27 02/20/21 14:58 Temperature 99 F Temperature Source Temporal Pulse Rate 81 Respiratory Rate 19 H Respiratory Effort Respiratory Depth Respiratory Pattern Blood Pressure 125/100 H Blood Pressure Mean 108 Pulse Ox 94 96 Oxygen Delivery Method Venturi Mask Venturi Mask Oxygen Flow Rate (L/min) Fraction of Inspired Oxygen (FIO2) 50 50 Weight Weight: 329 lb Body Mass Index (BMI) 47.2 Physical Exam Const alert and well nourished Orientation / Consciousness: lethargic HEENT normocephalic and head/scalp atraumatic Neck no lymphadenopathy Resp normal respiratory effort and no use of accessory muscles Resp Narrative: There was distant breath sounds with no significant rhonchi or wheezing. He had mildly increased work of breathing but no acute distress Cardio regular rate, regular rhythm, S1 normal heart sound and S2 normal heart sound GI normal to inspection, nondistended, normoactive bowel sounds, soft to palpation and non-tender Extremity normal to inspection and full ROM Skin no rashes or lesions noted and no wounds Neuro Neuro Narrative: Mildly lethargic Psych affect normal Results Lab / Micro Data Result Diagrams: 02/20/21 13:07 02/20/21 13:07 Labs: Laboratory Results - last 24 hr 02/20/21 13:07: WBC 11.2 H, RBC 5.25, Hgb 13.6, Hct 42.2, MCV 80.4, MCH 25.9 L, MCHC 32.2, RDW Std Deviation 41.9, RDW Coeff of Piotr 14.3, Plt Count 317, MPV 10.4, Immature Gran % (Auto) 1.000 H, Neut % (Auto) 70.7 H, Lymph % (Auto) 21.7, [place] % (Auto) 6.1, Eos % (Auto) 0.2, Baso % (Auto) 0.3, Absolute Neuts (auto) 7.9 H, Absolute Lymphs (auto) 2.43, Nucleated RBC % 0, Differential Comment , Atypical Lymphocytes RARE, Platelet Estimate ADEQUATE, RBC Morphology NORM C+C 02/20/21 13:07: Sodium 132 L, Potassium 3.3 L, Chloride 93 L, Carbon Dioxide 28.0, Anion Gap 11, BUN 19 H, Creatinine 1.15, Estim Creat Clear Calc 69.65, Est GFR (MDRD) Af Amer 83, Est GFR (MDRD) Non-Af 69, BUN/Creatinine Ratio 16.5, Glucose 282 H, Calcium 9.1, Total Bilirubin 0.70, AST 56 H, ALT 44, Alkaline Phosphatase 68, Total Protein 7.5, Albumin 2.2 L, Globulin 5.3 H, Albumin/Globulin Ratio 0.4 L 02/20/21 13:07: Lactic Acid 3.6 H* 02/20/21 13:07: Lactate Dehydrogenase 503 H Radiology Impression Chest X-Ray 02/20/21 13:40 IMPRESSION: Bilateral pulmonary infiltrates worse in the left hemithorax. Electronically Signed: Kurtis Stewart MD at 13:54 EST , Service support , Assessment & Plan Assessment/Plan (1) Diabetes mellitus: (2) COVID-19: (3) Pneumonia due to 2019-nCoV: (4) Acute respiratory failure with hypoxia: PLAN: Acute hypoxic respiratory failure with COVID pneumonia infection -Continue contact precautions given recent positive test -Incentive spirometry, duo nebs every 6 and chest physiotherapy -Continue oxygen therapy -Check procalcitonin and INR. -Low suspicion for PE at this time -Patient is past remdesivir given onset of symptoms > 10 days ago -Continue Decadron daily -Not volume overloaded at this time however would not give IV fluids, encourage p.o. intake -Replace potassium today. Lactate acidosis - Check repeat Lactate - Monitor resp status HTN - Resume home lisinopril 20 and HCTZ 25 - Telemetry monitoring Diabetes - Sliding scale and glucose checks AC QHS - Continue Januvia. Hold metformin. - Diabetic idea Full Code. Patient is going to discuss with his and does have a document at home. I encouraged him to go over this and discuss with family. Continue Lovenox for prophylaxis Reid Emery MD Charges/Coding Visit Charges Inpatient E&M: 74028 Init Hosp L3
[2021-02-20 15:47] LABS: International Normalized Ratio 1.2; Prothrombin Time (Protime)PT. 14.7 SECONDS (11.7-14.9)
[2021-02-20] MEDS: Insulin Lispro 100 UNIT/ML INSULN.PEN SC ×2 (16:39→20:12)
[2021-02-20 16:51] LABS: Bedside Glucose 287 mg/dL (70-110)
[2021-02-20 17:32] LABS: Reflex Lactate? Y
[2021-02-20 18:27] LABS: Lactic Acid 1.7 mmol/L (0.4-1.9)
[2021-02-20] MEDS: Potassium Chloride Oral Tablet 20 MEQ 40 MEQ PO (18:43)
[2021-02-20] MEDS: Ipratropium/Albuterol Sulfate 3 ML AMPUL.NEB INHALATION (19:05)
[2021-02-20] MEDS: Enoxaparin 40 MG/0.4 ML Syringe SC (20:13)
[2021-02-20 20:46] LABS: Bedside Glucose 366 mg/dL (70-110)
[2021-02-21] VITALS (14 sets, daily range): BP systolic 117–149; BP diastolic 55–88; PULSE 42–108; RESP 16–21; TEMP 36.2–37.3; O2SAT 90–98
[2021-02-21] MEDS: Insulin Lispro 100 UNIT/ML INSULN.PEN SC ×4 (06:30→20:52)
[2021-02-21 07:00] LABS: Bedside Glucose 277 mg/dL (70-110)
[2021-02-21 07:16] LABS: Absolute Lymphocyte Count 2.83 X10^3/uL (0.83-4.51); Absolute Neutrophil Count 7.5 X10^3/uL (2.0-7.7); Basophil# 0.04 X10^3/uL; Basophil% 0.4 % (0-1); Hematocrit 40.8 % (40-54); Lymphocyte # 2.83 X10^3/ul (0.83-4.51); Lymphocyte % 25.4 % (19-41); Mean Corp Hgb Conc 31.9 g/dL (32-36); Mean Corpuscular Hgb 25.6 pg (27.0-32.0); Mean Corpuscular Volume 80.3 fL (80-94); Mean Platelet Vol. 10.4 fl (6.2-12.0); Monocyte# 0.62 X10^3/uL; Monocyte% 5.6 % (0-10); NRBC Flagged by Analyzer 0 % (0-5); Neutrophil % 67.4 % (47-70); POSITIVE MORPHOLOGY YES; Platelet Count 325 K/mm3 (150-450); RBC Distribution Width CV 13.8 % (11.6-14.6); RBC Distribution Width SD 40.3 fl (35.1-43.9); Red Blood Count 5.08 M/mm3 (4.6-6.2); White Blood Count 11.1 K/mm3 (4.4-11.0)
[2021-02-21] MEDS: Ipratropium/Albuterol Sulfate 3 ML AMPUL.NEB INHALATION ×3 (07:17→20:58)
[2021-02-21 07:19] LABS: Differential Indicated SCAN CRITERIA MET
[2021-02-21 07:41] LABS: Anion Gap 10 (5-15); BUN 22 mg/dL (7-18); BUN/Creat Ratio 20.8 RATIO (10-20); Calcium,Total 8.9 mg/dL (8.5-10.1); Chloride 95 mmol/L (98-107); Creatinine, Serum 1.06 mg/dL (0.70-1.30); EST Glomerular Filtration Rate 75 mL/min (>60); Est Glom Filt Rate - Afr Amer 91 mL/min (>60); Estimated Creatinine Clearance 75.56 ml/min; Glucose 262 mg/dL (74-106); Magnesium 2.2 mg/dL (1.6-2.6); Potassium 3.6 mmol/L (3.5-5.1); Sodium Level 135 mmol/L (136-145)
[2021-02-21 08:11] LABS: Procalcitonin 0.22 ng/mL (0.00-0.09)
[2021-02-21] MEDS: Cholecalciferol (VIT D3) 25 MCG TABLET (1,000 UNITS) PO (08:14)
[2021-02-21] MEDS: LINAGLIPTIN 5 MG TABLET PO (08:14)
[2021-02-21] MEDS: Lisinopril 20 MG Tablet PO (08:14)
[2021-02-21] MEDS: Enoxaparin 40 MG/0.4 ML Syringe SC ×2 (08:14→20:51)
[2021-02-21] MEDS: hydroCHLOROthiazide 25 MG Tablet PO (08:14)
[2021-02-21 08:23] LABS: Atypical Lymphocyte 2+ %; Platelet Estimate ADEQUATE (ADEQ); Red Cell Morphology NORM C+C NORMAL (NORM C&C)
[2021-02-21] MEDS: dexAMETHasone 4 MG Tablet 6 MG PO (11:30)
[2021-02-21 11:45] LABS: Bedside Glucose 309 mg/dL (70-110)
--- NOTE | 2021-02-21 12:50 | CASEMGMT ---
RN CM called patient for initial transition planning/care coordination assessment. CANDIDA OCHOA introduced self and role at [facility]. Patient is alert and oriented. Patient willing to participate in assessment and is able to answer all questions appropriately. Care providers, pharmacy, and demographics verified. Patient wishes to discharge home, denies need for home health at this time. Patient states he has no further needs or concerns at this time. CM to follow for discharge planning needs that may arise. 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 3 steps and railing to enter the home. Patient states he is independent at home. Transportation:self/ DME/HHC: patient states he has shower chair, raised toilet, cane, grab bars, and glucometer with testing supplies at home. Patient states he has no preferences for DME. Patient denies previous HHC or SNF. Disposition Plan: Patient to discharge home with family support and follow-up plans in place. Mary Kate MATHUR, RN, CM
--- NOTE | 2021-02-21 13:29 | CASEMGMT ---
CANDIDA CM NOTE: Green sheet placed on chart for O2, if needed @ d/c Sara MALAVEN RN CM
--- NOTE | 2021-02-21 13:48 | PCM.PN.HOSP ---
Subjective Subjective Doing ok at present, though still requiring high-flow oxygen. Objective Data Objective Data Vital Signs: Vital Signs Temp Pulse Resp BP Pulse Ox 36.2 C L 70 18 137/55 H 92 02/21/21 08:10 02/21/21 11:00 02/21/21 08:10 02/21/21 08:10 02/21/21 08:36 Oxygen Flow Rate (L/min) 10 Oxygen Delivery Method High Flow Weight: 142.5 kg Body Mass Index (BMI) 44.4 Intake & Output: Intake and Output for Last 24 Hours 02/19/21 02/20/21 02/21/21 23:59 23:59 23:59 Intake Total 480 / 880 640 / 640 Balance 480 / 880 640 / 640 Medical Nutrition Assessment Dietitian: Malnutrition Criteria Met Start: 02/20/21 16:48 Freq: Status: Active Protocol: Document 02/20/21 16:48 RMA (Rec: 02/20/21 16:48 RMA [id number]) Nutrition Malnutrition Evidence of Malnutrition Exists Yes Malnutrition (severe): Acute Illness/Injury Evidenced By Suboptimal Energy Intake ( Severe),Weight Loss (Severe) Clinical Problem Acute Disease or Injury Related Malnutrition Etiology Severe protein/calorie malnutrition in the context of acute illness related to poor appetite/Covid infection Signs/Symptoms as evidenced by ~15-16 lb wt loss x last 10-12 days; calculated ~5% wt loss in less than 2 weeks and PO meeting less than 50-75% estimated nutrition needs. Status Active Problem Recommendation Dietitian Recommendations/Changes Will change diet to 2200 calorie; consistent carbohydrate; cardiac. Glucerna shake as needed once PO established at meals if inadequate. Lab / Micro Data Result Diagrams: 02/21/21 06:45 02/21/21 06:45 Labs: Laboratory Results - last 24 hr 02/20/21 13:07: Differential Comment , Atypical Lymphocytes RARE, Platelet Estimate ADEQUATE, RBC Morphology NORM C+C 02/20/21 13:07: Lactic Acid 3.6 H* 02/20/21 13:07: PT 14.7, INR 1.2 02/20/21 13:07: Lactate Dehydrogenase 503 H 02/20/21 16:32: POC Glucose 287 H 02/20/21 17:30: Lactic Acid 1.7 02/20/21 20:11: POC Glucose 366 H 02/21/21 06:29: POC Glucose 277 H 02/21/21 06:45: WBC 11.1 H, RBC 5.08, Hgb 13.0, Hct 40.8, MCV 80.3, MCH 25.6 L, MCHC 31.9 L, RDW Std Deviation 40.3, RDW Coeff of Piotr 13.8, Plt Count 325, MPV 10.4, Immature Gran % (Auto) 1.200 H, Neut % (Auto) 67.4, Lymph % (Auto) 25.4, [place] % (Auto) 5.6, Eos % (Auto) 0.0, Baso % (Auto) 0.4, Absolute Neuts (auto) 7.5, Absolute Lymphs (auto) 2.83, Nucleated RBC % 0, Atypical Lymphocytes 2+, Platelet Estimate ADEQUATE, RBC Morphology NORM C+C 02/21/21 06:45: Sodium 135 L, Potassium 3.6, Chloride 95 L, Carbon Dioxide 30.0, Anion Gap 10, BUN 22 H, Creatinine 1.06, Estim Creat Clear Calc 75.56, Est GFR (MDRD) Af Amer 91, Est GFR (MDRD) Non-Af 75, BUN/Creatinine Ratio 20.8 H, Glucose 262 H, Calcium 8.9, Magnesium 2.2 02/21/21 06:45: Procalcitonin 0.22 H 02/21/21 11:30: POC Glucose 309 H Micro: Microbiology 02/20/21 18:20 Interface Orders Streptococcus pneumoniae Antigen (M - Final 02/20/21 18:20 Urine, Clean Catch Legionella Antigen - Final Radiography Diagnostic Testing: Radiology Impression Chest X-Ray 02/20/21 13:40 IMPRESSION: Bilateral pulmonary infiltrates worse in the left hemithorax. 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 Acute hypoxic respiratory failure with COVID pneumonia infection Continue contact precautions given recent positive test Incentive spirometry, duo nebs every 6 and chest physiotherapy Continue oxygen therapy Check procalcitonin and INR. 2. Acute COVID 19 pneumonia unvaccinated Patient is past remdesivir given onset of symptoms > 10 days ago Continue Decadron daily Not volume overloaded at this time however would not give IV fluids, encourage p.o. intake 3. Lactate acidosis - 2/2 hypoxia -Check repeat Lactate - Monitor resp status 4. HTN controlled Resume home lisinopril 20 and HCTZ 25 5. Diabetes uncontrolled, exacerbated by steroids Sliding scale and glucose checks AC QHS Continue Januvia. Hold metformin. SSI check A1c add basal insulin 6. Continue Lovenox for prophylaxis Charges/Coding Visit Charges Inpatient E&M: 46972 Subs Hosp L2
[2021-02-21] MEDS: Sodium Chloride 0.65% 1 SPRAY SPRAY.BTL 2 SPRAY NASAL (15:12)
[2021-02-21 15:19] LABS: Hemoglobin A1c 8.1 % (3.8-5.6)
[2021-02-21 15:21] LABS: Bedside Glucose 328 mg/dL (70-110)
[2021-02-21 23:01] LABS: Bedside Glucose 393 mg/dL (70-110)
[2021-02-22] VITALS (14 sets, daily range): BP systolic 125–147; BP diastolic 67–85; PULSE 41–106; RESP 16–20; TEMP 36.2–36.7; O2SAT 91–97
[2021-02-22 05:58] LABS: Absolute Lymphocyte Count 2.81 X10^3/uL (0.83-4.51); Absolute Neutrophil Count 8.3 X10^3/uL (2.0-7.7); Basophil# 0.03 X10^3/uL; Basophil% 0.3 % (0-1); Hematocrit 39.5 % (40-54); Hemoglobin 12.8 g/dL (13.0-16.5); Lymphocyte # 2.81 X10^3/ul (0.83-4.51); Lymphocyte % 23.6 % (19-41); Mean Corp Hgb Conc 32.4 g/dL (32-36); Mean Corpuscular Volume 80.3 fL (80-94); Mean Platelet Vol. 10.6 fl (6.2-12.0); Monocyte# 0.62 X10^3/uL; Monocyte% 5.2 % (0-10); NRBC Flagged by Analyzer 0 % (0-5); Neutrophil # 8.32 X10^3/uL (2.7-7.7); Neutrophil % 69.6 % (47-70); Platelet Count 374 K/mm3 (150-450); RBC Distribution Width CV 13.8 % (11.6-14.6); RBC Distribution Width SD 40.4 fl (35.1-43.9); Red Blood Count 4.92 M/mm3 (4.6-6.2); White Blood Count 11.9 K/mm3 (4.4-11.0)
[2021-02-22] MEDS: Insulin Lispro 100 UNIT/ML INSULN.PEN SC ×4 (06:23→22:07)
[2021-02-22 06:30] LABS: ALB/GLOB Ratio 0.4 RATIO (0.9-2.4); AST(SGOT) 43 U/L (15-37); Alanine Aminotransfer ALT/SGPT 46 U/L (16-61); Albumin, Serum 2.1 g/dL (3.2-5.0); Alkaline Phosphatase 70 U/L (45-117); Anion Gap 10 (5-15); BUN 28 mg/dL (7-18); BUN/Creat Ratio 26.2 RATIO (10-20); Calcium,Total 8.8 mg/dL (8.5-10.1); Chloride 92 mmol/L (98-107); Creatinine, Serum 1.07 mg/dL (0.70-1.30); EST Glomerular Filtration Rate 75 mL/min (>60); Est Glom Filt Rate - Afr Amer 90 mL/min (>60); Estimated Creatinine Clearance 74.86 ml/min; Globulin 5.1 g/dL (2.2-4.2); Glucose 300 mg/dL (74-106); Protein, Total 7.2 g/dL (6.4-8.2); Sodium Level 132 mmol/L (136-145)
[2021-02-22 06:31] LABS: Bedside Glucose 324 mg/dL (70-110)
[2021-02-22] MEDS: Ipratropium/Albuterol Sulfate 3 ML AMPUL.NEB INHALATION ×3 (06:51→20:09)
[2021-02-22] MEDS: Enoxaparin 40 MG/0.4 ML Syringe SC ×2 (10:03→22:05)
[2021-02-22] MEDS: LINAGLIPTIN 5 MG TABLET PO (10:03)
[2021-02-22] MEDS: Lisinopril 20 MG Tablet PO (10:03)
[2021-02-22] MEDS: hydroCHLOROthiazide 25 MG Tablet PO (10:03)
[2021-02-22] MEDS: Cholecalciferol (VIT D3) 25 MCG TABLET (1,000 UNITS) PO (10:03)
[2021-02-22] MEDS: dexAMETHasone 4 MG Tablet 6 MG PO (10:03)
[2021-02-22 12:00] LABS: Bedside Glucose 363 mg/dL (70-110)
--- NOTE | 2021-02-22 14:34 | PCM.PN.HOSP ---
Subjective Subjective Breathing ok. Coughing up some clear phlegm. Objective Data Objective Data Vital Signs: Vital Signs Temp Pulse Resp BP Pulse Ox 36.2 C L 85 16 126/67 H 95 02/22/21 09:04 02/22/21 12:58 02/22/21 12:58 02/22/21 09:04 02/22/21 09:04 Oxygen Flow Rate (L/min) 11 Oxygen Delivery Method High Flow Weight: 142.5 kg Body Mass Index (BMI) 44.4 Intake & Output: Intake and Output for Last 24 Hours 02/20/21 02/21/21 02/22/21 23:59 23:59 23:59 Intake Total 480 / 880 640 / 640 240 / 240 Balance 480 / 880 640 / 640 240 / 240 Medical Nutrition Assessment Dietitian: Malnutrition Criteria Met Start: 02/20/21 16:48 Freq: Status: Active Protocol: Document 02/20/21 16:48 RMA (Rec: 02/20/21 16:48 RMA [id number]) Nutrition Malnutrition Evidence of Malnutrition Exists Yes Malnutrition (severe): Acute Illness/Injury Evidenced By Suboptimal Energy Intake ( Severe),Weight Loss (Severe) Clinical Problem Acute Disease or Injury Related Malnutrition Etiology Severe protein/calorie malnutrition in the context of acute illness related to poor appetite/Covid infection Signs/Symptoms as evidenced by ~15-16 lb wt loss x last 10-12 days; calculated ~5% wt loss in less than 2 weeks and PO meeting less than 50-75% estimated nutrition needs. Status Active Problem Recommendation Dietitian Recommendations/Changes Will change diet to 2200 calorie; consistent carbohydrate; cardiac. Glucerna shake as needed once PO established at meals if inadequate. Lab / Micro Data Result Diagrams: 02/22/21 05:10 02/22/21 05:10 Labs: Laboratory Results - last 24 hr 02/21/21 06:45: Hemoglobin A1c 8.1 H 02/21/21 15:09: POC Glucose 328 H 02/21/21 20:42: POC Glucose 393 H 02/22/21 05:10: WBC 11.9 H, RBC 4.92, Hgb 12.8 L, Hct 39.5 L, MCV 80.3, MCH 26.0 L, MCHC 32.4, RDW Std Deviation 40.4, RDW Coeff of Piotr 13.8, Plt Count 374, MPV 10.6, Immature Gran % (Auto) 1.300 H, Neut % (Auto) 69.6, Lymph % (Auto) 23.6, I[place]quois % (Auto) 5.2, Eos % (Auto) 0.0, Baso % (Auto) 0.3, Absolute Neuts (auto) 8.3 H, Absolute Lymphs (auto) 2.81, Nucleated RBC % 0 02/22/21 05:10: Sodium 132 L, Potassium 4.0, Chloride 92 L, Carbon Dioxide 30.0, Anion Gap 10, BUN 28 H, Creatinine 1.07, Estim Creat Clear Calc 74.86, Est GFR (MDRD) Af Amer 90, Est GFR (MDRD) Non-Af 75, BUN/Creatinine Ratio 26.2 H, Glucose 300 H, Calcium 8.8, Total Bilirubin 0.50, AST 43 H, ALT 46, Alkaline Phosphatase 70, Total Protein 7.2, Albumin 2.1 L, Globulin 5.1 H, Albumin/Globulin Ratio 0.4 L 02/22/21 06:21: POC Glucose 324 H 02/22/21 11:54: POC Glucose 363 H Micro: Microbiology 02/20/21 18:20 Interface Orders Streptococcus pneumoniae Antigen (M - Final 02/20/21 18:20 Urine, Clean Catch Legionella Antigen - Final Physical Exam Const alert and no apparent distress Resp normal respiratory effort, no retractions, no use of accessory muscles and clear to auscultation bilaterally Cardio regular rate, regular rhythm, S1 normal heart sound and S2 normal heart sound GI normal to inspection, nondistended, normoactive bowel sounds, soft to palpation, non-tender and non-distended Assessment & Plan Assessment/Plan (1) Diabetes mellitus: QUALIFIERS: Diabetes mellitus type: type 2 Diabetes mellitus moth exterminator insulin use: without senior care use Diabetes mellitus complication status: without complication Qualified Code(s): E11.9 - Type 2 diabetes mellitus without complications (2) COVID-19: (3) Pneumonia due to 2019-nCoV: (4) Acute respiratory failure with hypoxia: PLAN: 1. Acute hypoxic respiratory failure 2/2h COVID pneumonia infection Continue contact precautions given recent positive test Incentive spirometry, duo nebs every 6 and chest physiotherapy Continue oxygen therapy 2. Acute COVID 19 pneumonia unvaccinated Patient is past remdesivir given onset of symptoms > 10 days ago Continue Decadron daily Furosemide challenge 3. Lactate acidosis - 2/2 hypoxia -Check repeat Lactate - Monitor resp status 4. HTN controlled Resume home lisinopril 20 and HCTZ 25 5. Diabetes uncontrolled, exacerbated by steroids Sliding scale and glucose checks AC QHS Continue Januvia. Hold metformin. SSI check A1c increase glargine 6. Continue Lovenox for prophylaxis Charges/Coding Visit Charges Inpatient E&M: 33544 Subs Hosp L2
[2021-02-22] MEDS: Furosemide 40 MG/4 ML Vial IV (15:05)
[2021-02-22 17:00] LABS: Bedside Glucose 371 mg/dL (70-110)
[2021-02-22 22:20] LABS: Bedside Glucose 331 mg/dL (70-110)
[2021-02-23] VITALS (14 sets, daily range): BP systolic 120–149; BP diastolic 67–81; PULSE 47–93; RESP 18–22; TEMP 36.4–37.1; O2SAT 91–96
--- NOTE | 2021-02-23 00:37 | PCS.PANDOC ---
PANDEMIC DOCUMENTATION INITIATED: Date: 10/15/2020 Time: 190
[2021-02-23 06:38] LABS: ALB/GLOB Ratio 0.4 RATIO (0.9-2.4); AST(SGOT) 58 U/L (15-37); Alanine Aminotransfer ALT/SGPT 57 U/L (16-61); Albumin, Serum 2.1 g/dL (3.2-5.0); Alkaline Phosphatase 68 U/L (45-117); Anion Gap 9 (5-15); BUN 36 mg/dL (7-18); BUN/Creat Ratio 30.5 RATIO (10-20); Chloride 94 mmol/L (98-107); Creatinine, Serum 1.18 mg/dL (0.70-1.30); EST Glomerular Filtration Rate 67 mL/min (>60); Est Glom Filt Rate - Afr Amer 81 mL/min (>60); Estimated Creatinine Clearance 67.88 ml/min; Globulin 4.7 g/dL (2.2-4.2); Glucose 243 mg/dL (74-106); Protein, Total 6.8 g/dL (6.4-8.2); Sodium Level 132 mmol/L (136-145)
[2021-02-23] MEDS: Insulin Lispro 100 UNIT/ML INSULN.PEN SC ×4 (06:39→21:16)
[2021-02-23 06:55] LABS: Bedside Glucose 246 mg/dL (70-110)
[2021-02-23] MEDS: Ipratropium/Albuterol Sulfate 3 ML AMPUL.NEB INHALATION ×3 (07:18→19:00)
[2021-02-23] MEDS: Enoxaparin 40 MG/0.4 ML Syringe SC ×2 (09:03→21:16)
[2021-02-23] MEDS: Cholecalciferol (VIT D3) 25 MCG TABLET (1,000 UNITS) PO (09:03)
[2021-02-23] MEDS: Lisinopril 20 MG Tablet PO (09:03)
[2021-02-23] MEDS: hydroCHLOROthiazide 25 MG Tablet PO (09:03)
[2021-02-23] MEDS: LINAGLIPTIN 5 MG TABLET PO (09:03)
[2021-02-23] MEDS: dexAMETHasone 4 MG Tablet 6 MG PO (09:03)
[2021-02-23] MEDS: Nystatin Powder 15gm Bottle 1 APPLIC TOPICAL ×2 (11:40→21:16)
[2021-02-23 12:01] LABS: Bedside Glucose 288 mg/dL (70-110)
--- NOTE | 2021-02-23 13:40 | PCM.PN.HOSP ---
Subjective Subjective More short of breath today. Coughing up some phlegm. Objective Data Objective Data Vital Signs: Vital Signs Temp Pulse Resp BP Pulse Ox 36.6 C 86 20 H 149/81 H 91 02/23/21 09:00 02/23/21 09:00 02/23/21 09:00 02/23/21 09:00 02/23/21 11:53 Oxygen Flow Rate (L/min) 10 Oxygen Delivery Method Nasal Cannula Weight: 142.5 kg Body Mass Index (BMI) 44.4 Intake & Output: Intake and Output for Last 24 Hours 02/21/21 02/22/21 02/23/21 23:59 23:59 23:59 Intake Total 640 / 640 720 / 720 600 / 600 Balance 640 / 640 720 / 720 600 / 600 Medical Nutrition Assessment Dietitian: Malnutrition Criteria Met Start: 02/20/21 16:48 Freq: Status: Active Protocol: Document 02/20/21 16:48 RMA (Rec: 02/20/21 16:48 RMA [id number]) Nutrition Malnutrition Evidence of Malnutrition Exists Yes Malnutrition (severe): Acute Illness/Injury Evidenced By Suboptimal Energy Intake ( Severe),Weight Loss (Severe) Clinical Problem Acute Disease or Injury Related Malnutrition Etiology Severe protein/calorie malnutrition in the context of acute illness related to poor appetite/Covid infection Signs/Symptoms as evidenced by ~15-16 lb wt loss x last 10-12 days; calculated ~5% wt loss in less than 2 weeks and PO meeting less than 50-75% estimated nutrition needs. Status Active Problem Recommendation Dietitian Recommendations/Changes Will change diet to 2200 calorie; consistent carbohydrate; cardiac. Glucerna shake as needed once PO established at meals if inadequate. Lab / Micro Data Result Diagrams: 02/22/21 05:10 02/23/21 05:15 Labs: Laboratory Results - last 24 hr 02/22/21 16:50: POC Glucose 371 H 02/22/21 22:03: POC Glucose 331 H 02/23/21 05:15: Sodium 132 L, Potassium 4.0, Chloride 94 L, Carbon Dioxide 29.0, Anion Gap 9, BUN 36 H, Creatinine 1.18, Estim Creat Clear Calc 67.88, Est GFR (MDRD) Af Amer 81, Est GFR (MDRD) Non-Af 67, BUN/Creatinine Ratio 30.5 H, Glucose 243 H, Calcium 9.0, Total Bilirubin 0.60, AST 58 H, ALT 57, Alkaline Phosphatase 68, Total Protein 6.8, Albumin 2.1 L, Globulin 4.7 H, Albumin/Globulin Ratio 0.4 L 02/23/21 06:39: POC Glucose 246 H 02/23/21 11:50: POC Glucose 288 H Micro: Microbiology 02/20/21 18:20 Interface Orders Streptococcus pneumoniae Antigen (M - Final 02/20/21 18:20 Urine, Clean Catch Legionella Antigen - Final Physical Exam Const Constitutional Narrative: Up in chair. On high flow oxygen with pulse ox ranging between 86 to 91%. Resp normal respiratory effort, no retractions, no use of accessory muscles and clear to auscultation bilaterally Cardio regular rate, regular rhythm, S1 normal heart sound and S2 normal heart sound GI normal to inspection, nondistended, normoactive bowel sounds, soft to palpation, non-tender, non-distended and hepatosplenomegaly GI Narrative: Obese Extremity normal to inspection and full ROM Assessment & Plan Assessment/Plan (1) Diabetes mellitus: QUALIFIERS: Diabetes mellitus type: type 2 Diabetes mellitus correction insulin use: without colorman use Diabetes mellitus complication status: without complication Qualified Code(s): E11.9 - Type 2 diabetes mellitus without complications (2) COVID-19: (3) Pneumonia due to 2019-nCoV: (4) Acute respiratory failure with hypoxia: PLAN: 1. Acute hypoxic respiratory failure ongoing 2/2 COVID pneumonia infection Continue contact precautions given recent positive test Incentive spirometry, duo nebs every 6 and chest physiotherapy Continue oxygen therapy Strep and Legionella antigens negative Check sputum culture Check D-dimer, if elevated, check CTA chest 2. Acute COVID 19 pneumonia unvaccinated Patient is past remdesivir given onset of symptoms > 10 days ago Continue Decadron daily Furosemide challenge 3. Lactate acidosis -2/2 hypoxia no additional work up 4. HTN controlled Resume home lisinopril 20 and HCTZ 25 5. Diabetes uncontrolled, exacerbated by steroids Sliding scale and glucose checks AC QHS Continue Januvia. Hold metformin. SSI check A1c increase glargine 6. Continue Lovenox for prophylaxis Charges/Coding Visit Charges Inpatient E&M: 92241 Subs Hosp L2
[2021-02-23] MEDS: Furosemide 40 MG/4 ML Vial IV (14:01)
[2021-02-23] MEDS: 0.9% Saline Lock 10 ML Syringe IV (14:01)
[2021-02-23 15:46] LABS: D-Dimer Quantitative (DVT/PE) 2.91 FEU/ug/m (0.27-0.49)
--- NOTE | 2021-02-23 15:52 | CT_ITS ---
HISTORY: respiratory failure, dyspnea, cough, Covid positive EXAMINATION: CTA Chest WO/W Contrast Injection TECHNIQUE: Helically acquired images were obtained of the chest following IV contrast as per pulmonary angiogram protocol with 3D reconstructions. A radiation dose optimization technique was used for this scan. IV Contrast dosage and agent: 100mL Isovue-370 COMPARISON: None FINDINGS: LUNGS, PLEURA AND LARGE AIRWAYS: Bilateral, multifocal and largely peripheral groundglass opacities with septal thickening. No consolidations or pleural effusions. No pneumothorax. THYROID: No thyroid lesions. PULMONARY ARTERIES: Normal in caliber. No pulmonary embolism. AORTA AND GREAT VESSELS: No aneurysm or dissection. HEART AND PERICARDIUM: Heart size is normal. No pericardial effusion. MEDIASTINUM AND MARRY: No mediastinal or hilar adenopathy. Esophagus is unremarkable. No hiatal hernia. UPPER ABDOMEN: Diffuse hepatic steatosis. BONES: No acute or aggressive abnormality. CT/CTA Chest W/WO Contrast IMPRESSION: Negative CTA Chest. Pulmonary findings consistent with Covid pneumonia. Individualized dose optimization techniques were used for this CT. at 1715 Reported and signed by: Subhash Nettles MD Electronically Signed: Subhash Nettles MD at 17:14 EST Tel , Service support ,
[2021-02-23 17:00] LABS: Bedside Glucose 366 mg/dL (70-110)
[2021-02-23 21:50] LABS: Bedside Glucose 337 mg/dL (70-110)
[2021-02-24] VITALS (13 sets, daily range): BP systolic 114–148; BP diastolic 59–67; PULSE 45–84; RESP 16–18; TEMP 36.7–36.8; O2SAT 88–98
[2021-02-24] MEDS: Insulin Lispro 100 UNIT/ML INSULN.PEN SC ×4 (06:15→21:19)
[2021-02-24 06:29] LABS: ALB/GLOB Ratio 0.4 RATIO (0.9-2.4); AST(SGOT) 50 U/L (15-37); Alanine Aminotransfer ALT/SGPT 64 U/L (16-61); Albumin, Serum 2.1 g/dL (3.2-5.0); Alkaline Phosphatase 65 U/L (45-117); Anion Gap 9 (5-15); BUN 36 mg/dL (7-18); BUN/Creat Ratio 35.6 RATIO (10-20); Chloride 92 mmol/L (98-107); Creatinine, Serum 1.01 mg/dL (0.70-1.30); EST Glomerular Filtration Rate 80 mL/min (>60); Est Glom Filt Rate - Afr Amer 96 mL/min (>60); Globulin 4.7 g/dL (2.2-4.2); Glucose 234 mg/dL (74-106); Potassium 3.6 mmol/L (3.5-5.1); Protein, Total 6.8 g/dL (6.4-8.2); Sodium Level 132 mmol/L (136-145)
[2021-02-24 06:30] LABS: Bedside Glucose 224 mg/dL (70-110)
[2021-02-24] MEDS: Ipratropium/Albuterol Sulfate 3 ML AMPUL.NEB INHALATION ×3 (07:23→19:28)
[2021-02-24] MEDS: Nystatin Powder 15gm Bottle 1 APPLIC TOPICAL ×2 (09:06→21:25)
[2021-02-24] MEDS: LINAGLIPTIN 5 MG TABLET PO (09:07)
[2021-02-24] MEDS: Lisinopril 20 MG Tablet PO (09:07)
[2021-02-24] MEDS: hydroCHLOROthiazide 25 MG Tablet PO (09:08)
[2021-02-24] MEDS: dexAMETHasone 4 MG Tablet 6 MG PO (09:08)
[2021-02-24] MEDS: Enoxaparin 40 MG/0.4 ML Syringe SC ×2 (09:08→21:22)
[2021-02-24] MEDS: Cholecalciferol (VIT D3) 25 MCG TABLET (1,000 UNITS) PO (09:08)
--- NOTE | 2021-02-24 11:18 | PN.HOSP_ITS ---
Subjective Subjective Feeling better. Decreased oxygen requirements. Objective Data Objective Data Vital Signs: Vital Signs Temp Pulse Resp BP Pulse Ox 36.7 C 70 18 114/67 94 02/24/21 09:05 02/24/21 09:05 02/24/21 09:05 02/24/21 09:05 02/24/21 09:05 Oxygen Flow Rate (L/min) 7 Oxygen Delivery Method Nasal Cannula Weight: 142.5 kg Body Mass Index (BMI) 44.4 Intake & Output: Intake and Output for Last 24 Hours 02/22/21 02/23/21 02/24/21 23:59 23:59 23:59 Intake Total 720 / 720 1080 / 1080 Balance 720 / 720 1080 / 1080 Medical Nutrition Assessment Dietitian: Malnutrition Criteria Met Start: 02/20/21 16:48 Freq: Status: Active Protocol: Document 02/20/21 16:48 RMA (Rec: 02/20/21 16:48 RMA [id number]) Nutrition Malnutrition Evidence of Malnutrition Exists Yes Malnutrition (severe): Acute Illness/Injury Evidenced By Suboptimal Energy Intake ( Severe),Weight Loss (Severe) Clinical Problem Acute Disease or Injury Related Malnutrition Etiology Severe protein/calorie malnutrition in the context of acute illness related to poor appetite/Covid infection Signs/Symptoms as evidenced by ~15-16 lb wt loss x last 10-12 days; calculated ~5% wt loss in less than 2 weeks and PO meeting less than 50-75% estimated nutrition needs. Status Active Problem Recommendation Dietitian Recommendations/Changes Will change diet to 2200 calorie; consistent carbohydrate; cardiac. Glucerna shake as needed once PO established at meals if inadequate. Lab / Micro Data Result Diagrams: 02/22/21 05:10 02/24/21 05:05 Labs: Laboratory Results - last 24 hr 02/23/21 11:50: POC Glucose 288 H 02/23/21 15:10: D-Dimer Quant (PE/DVT) 2.91 H* 02/23/21 16:52: POC Glucose 366 H 02/23/21 21:13: POC Glucose 337 H 02/24/21 05:05: Sodium 132 L, Potassium 3.6, Chloride 92 L, Carbon Dioxide 31.0, Anion Gap 9, BUN 36 H, Creatinine 1.01, Estim Creat Clear Calc 79.30, Est GFR (MDRD) Af Amer 96, Est GFR (MDRD) Non-Af 80, BUN/Creatinine Ratio 35.6 H, Glucose 234 H, Calcium 9.0, Total Bilirubin 0.60, AST 50 H, ALT 64 H, Alkaline Phosphatase 65, Total Protein 6.8, Albumin 2.1 L, Globulin 4.7 H, Albumin/Globulin Ratio 0.4 L 02/24/21 06:14: POC Glucose 224 H Micro: Microbiology 02/20/21 18:20 Interface Orders Streptococcus pneumoniae Antigen (M - Final 02/20/21 18:20 Urine, Clean Catch Legionella Antigen - Final Radiography Diagnostic Testing: Radiology Impression Chest CTA 02/23/21 15:52 IMPRESSION: Negative CTA Chest. Pulmonary findings consistent with Covid pneumonia. Individualized dose optimization techniques were used for this CT. at 1715 Reported and signed by: Subhash Nettles MD Electronically Signed: uSbhash Nettles MD at 17:14 EST Tel , Service support , Physical Exam Const alert and no apparent distress Resp normal respiratory effort Resp Narrative: crackles in RLL Cardio regular rate, regular rhythm, S1 normal heart sound and S2 normal heart sound GI normal to inspection, nondistended, normoactive bowel sounds, soft to palpation, non-tender and non-distended Extremity normal to inspection Assessment & Plan Assessment/Plan (1) Diabetes mellitus: QUALIFIERS: Diabetes mellitus type: type 2 Diabetes mellitus nursing home insulin use: without rodent exterminator use Diabetes mellitus complication status: without complication Qualified Code(s): E11.9 - Type 2 diabetes mellitus without complications (2) COVID-19: (3) Pneumonia due to 2019-nCoV: (4) Acute respiratory failure with hypoxia: PLAN: 1. Acute hypoxic respiratory failure improving 2/2 COVID pneumonia infection Continue contact precautions given recent positive test Incentive spirometry, duo nebs every 6 and chest physiotherapy Continue oxygen therapy Strep and Legionella antigens negative Check sputum culture CTA negative for PE 02/24: pulse ox 86% with 7l/m after walking back from restroom. Overall better, but not ready for discharge today. 2. Acute COVID 19 pneumonia unvaccinated Onset the , quarantine until the 30th Patient is past remdesivir given onset of symptoms > 10 days ago Continue Decadron daily Furosemide challenge again 3. Lactate acidosis -2/2 hypoxia no additional work up 4. HTN controlled Resume home lisinopril 20 and HCTZ 25 5. Diabetes uncontrolled, exacerbated by steroids Sliding scale and glucose checks AC QHS Continue Januvia. Hold metformin. SSI A1c 8.1 increase glargine yo 25 BID 6. Continue Lovenox for prophylaxis 7. Disposition: anticipate pt can be discharged in the coming days with oxygen if he can maintain a pulse ox of 90% or better on 6l/m or less. Charges/Coding Visit Charges Inpatient E&M: 18055 Subs Hosp L2
[2021-02-24 11:36] LABS: Bedside Glucose 322 mg/dL (70-110)
[2021-02-24] MEDS: Furosemide 40 MG/4 ML Vial IV (11:42)
[2021-02-24] MEDS: 0.9% Saline Lock 10 ML Syringe IV (11:42)
[2021-02-24 16:30] LABS: Bedside Glucose 412 mg/dL (70-110)
[2021-02-24 21:46] LABS: Bedside Glucose 421 mg/dL (70-110)
[2021-02-25] VITALS (13 sets, daily range): BP systolic 127–148; BP diastolic 54–67; PULSE 48–90; RESP 16–20; TEMP 36.6–37.1; O2SAT 82–95
[2021-02-25] MEDS: Ipratropium/Albuterol Sulfate 3 ML AMPUL.NEB INHALATION ×2 (06:47→19:00)
[2021-02-25] MEDS: Insulin Lispro 100 UNIT/ML INSULN.PEN SC ×4 (06:53→20:00)
[2021-02-25 07:10] LABS: Bedside Glucose 210 mg/dL (70-110)
[2021-02-25 08:11] LABS: ALB/GLOB Ratio 0.5 RATIO (0.9-2.4); AST(SGOT) 53 U/L (15-37); Alanine Aminotransfer ALT/SGPT 68 U/L (16-61); Albumin, Serum 2.4 g/dL (3.2-5.0); Alkaline Phosphatase 70 U/L (45-117); Anion Gap 11 (5-15); BUN 37 mg/dL (7-18); BUN/Creat Ratio 34.9 RATIO (10-20); Chloride 93 mmol/L (98-107); Creatinine, Serum 1.06 mg/dL (0.70-1.30); EST Glomerular Filtration Rate 75 mL/min (>60); Est Glom Filt Rate - Afr Amer 91 mL/min (>60); Estimated Creatinine Clearance 75.56 ml/min; Globulin 4.4 g/dL (2.2-4.2); Glucose 214 mg/dL (74-106); Potassium 4.2 mmol/L (3.5-5.1); Protein, Total 6.8 g/dL (6.4-8.2); Sodium Level 134 mmol/L (136-145)
[2021-02-25] MEDS: LINAGLIPTIN 5 MG TABLET PO (08:51)
[2021-02-25] MEDS: Cholecalciferol (VIT D3) 25 MCG TABLET (1,000 UNITS) PO (08:51)
[2021-02-25] MEDS: Enoxaparin 40 MG/0.4 ML Syringe SC ×2 (08:51→19:58)
[2021-02-25] MEDS: Lisinopril 20 MG Tablet PO (08:51)
[2021-02-25] MEDS: dexAMETHasone 4 MG Tablet 6 MG PO (08:51)
[2021-02-25] MEDS: hydroCHLOROthiazide 25 MG Tablet PO (08:51)
[2021-02-25] MEDS: Nystatin Powder 15gm Bottle 1 APPLIC TOPICAL ×2 (08:52→19:59)
[2021-02-25 12:05] LABS: Bedside Glucose 401 mg/dL (70-110)
--- NOTE | 2021-02-25 13:11 | CASEMGMT ---
Pt needs 10L of oxygen with ambulation so no discharge for pt at this time per Dr. Lorena OCHOA to follow. SStamos TIRADO CM
[2021-02-25 16:40] LABS: Bedside Glucose 329 mg/dL (70-110)
--- NOTE | 2021-02-25 19:39 | PCM.PN.HOSP ---
Subjective Subjective Patient was seen and examined today, his was in the room during the time of my examination. Patient requires 9 L via nasal cannula on ambulation, at rest patient is on 3 L via nasal cannula. Objective Data Objective Data Vital Signs: Vital Signs Temp Pulse Resp BP Pulse Ox 98.5 F 88 18 127/61 H 95 02/25/21 14:50 02/25/21 19:01 02/25/21 19:01 02/25/21 14:50 02/25/21 19:01 Oxygen Flow Rate (L/min) [ 10 AMBULATING with Oxygen #3] Oxygen Flow Rate (L/min) [ 8 AMBULATING with Oxygen #2] Oxygen Flow Rate (L/min) [ 3 AMBULATING with Oxygen #1] Oxygen Flow Rate (L/min) [At 3 REST with Oxygen] Oxygen Flow Rate (L/min) 3 Oxygen Delivery Method Nasal Cannula Weight: 142.5 kg Body Mass Index (BMI) 44.4 Intake & Output: Intake and Output for Last 24 Hours 02/23/21 02/24/21 02/25/21 23:59 23:59 23:59 Intake Total 1080 / 1080 760 / 760 720 / 720 Output Total 600 / 800 200 / 200 Balance 1080 / 1080 160 / -40 520 / 520 Medical Nutrition Assessment Dietitian: Malnutrition Criteria Met Start: 02/20/21 16:48 Freq: Status: Active Protocol: Document 02/25/21 14:13 (Rec: 02/25/21 14:13 [id number]) Nutrition Malnutrition Evidence of Malnutrition Exists No Malnutrition (severe): Acute Illness/Injury Clinical Problem Acute Disease or Injury Related Malnutrition Etiology Severe protein/calorie malnutrition in the context of acute illness related to poor appetite/Covid infection Signs/Symptoms as evidenced by ~15-16 lb wt loss x last 10-12 days; calculated ~5% wt loss in less than 2 weeks and PO meeting less than 50-75% estimated nutrition needs. Status Resolved Problem Recommendation Dietitian Recommendations/Changes Continue 2200 calorie, consistent carbohydrate, cardiac diet. Lab / Micro Data Result Diagrams: 02/22/21 05:10 02/25/21 07:08 Labs: Laboratory Results - last 24 hr 02/24/21 21:14: POC Glucose 421 H 02/25/21 06:51: POC Glucose 210 H 02/25/21 07:08: Sodium 134 L, Potassium 4.2, Chloride 93 L, Carbon Dioxide 30.0, Anion Gap 11, BUN 37 H, Creatinine 1.06, Estim Creat Clear Calc 75.56, Est GFR (MDRD) Af Amer 91, Est GFR (MDRD) Non-Af 75, BUN/Creatinine Ratio 34.9 H, Glucose 214 H, Calcium 9.0, Total Bilirubin 0.60, AST 53 H, ALT 68 H, Alkaline Phosphatase 70, Total Protein 6.8, Albumin 2.4 L, Globulin 4.4 H, Albumin/Globulin Ratio 0.5 L 02/25/21 11:41: POC Glucose 401 H 02/25/21 16:31: POC Glucose 329 H Micro: Microbiology 02/24/21 06:43 Sputum, Expectorated/Coughed Gram Stain - Final 02/24/21 06:43 Sputum, Expectorated/Coughed Respiratory Culture - Preliminary Alpha Hemolytic Streptococcus 02/20/21 18:20 Interface Orders Streptococcus pneumoniae Antigen (M - Final 02/20/21 18:20 Urine, Clean Catch Legionella Antigen - Final Physical Exam Const alert, oriented x3, no apparent distress and healthy appearing Constitutional Narrative: Patient is morbidly obese General Appearance: cooperative, well kempt and well developed Orientation / Consciousness: awake, oriented to person, oriented to place and oriented to time HEENT normocephalic, head/scalp atraumatic and moist oral mucous membranes Head and Scalp: normocephalic Eyes PERRL, EOMs intact bilaterally and conjunctivae normal Neck nuchal rigidity, supple, no JVD, thyroid normal and no carotid bruits General: trachea midline Resp normal respiratory effort and clear to auscultation bilaterally Auscultation: Negative for rales, rhonchi or wheezes Cardio regular rate, regular rhythm, no murmurs, no rub and no gallops GI normal to inspection, nondistended, normoactive bowel sounds, soft to palpation, non-tender and non-distended Extremity no clubbing, cyanosis or edema Skin no rashes or lesions noted General Skin Exam: no breakdown Neuro oriented x3, CN's II-XII intact bilaterally, no focal motor deficits and no sensory deficits noted Sensorium / Orientation: awake and alert Speech: speech normal Psych thought process normal and affect normal Assessment & Plan Assessment/Plan (1) Pneumonia due to 2019-nCoV: PLAN: 1. COVID-19 pneumonia-patient is currently only on dexamethasone, I will recheck his oxygen requirement tomorrow to see if he can be discharged home #2 acute hypoxic respiratory failure secondary to #1-again patient's pulse ox will be checked on ambulation more and at rest to see if he qualifies for home oxygen #3 type 2 diabetes-under poor control-I will review the patient's home-going diabetes medications, he may need to be on additional oral medications or placed on insulin on discharge #4 essential hypertension Charges/Coding Visit Charges Inpatient E&M: 85645 Subs Hosp L2
[2021-02-25 21:25] LABS: Bedside Glucose 408 mg/dL (70-110)
[2021-02-26] VITALS (9 sets, daily range): BP systolic 119–130; BP diastolic 60–78; PULSE 48–89; RESP 18–20; TEMP 36.6; O2SAT 83–94
[2021-02-26] MEDS: Insulin Lispro 100 UNIT/ML INSULN.PEN SC ×2 (06:32→11:21)
[2021-02-26 06:40] LABS: Bedside Glucose 221 mg/dL (70-110)
[2021-02-26] MEDS: Ipratropium/Albuterol Sulfate 3 ML AMPUL.NEB INHALATION ×2 (06:54→13:36)
[2021-02-26] MEDS: Enoxaparin 40 MG/0.4 ML Syringe SC (08:08)
[2021-02-26] MEDS: hydroCHLOROthiazide 25 MG Tablet PO (08:09)
[2021-02-26] MEDS: dexAMETHasone 4 MG Tablet 6 MG PO (08:09)
[2021-02-26] MEDS: LINAGLIPTIN 5 MG TABLET PO (08:10)
[2021-02-26] MEDS: Lisinopril 20 MG Tablet PO (08:10)
[2021-02-26] MEDS: Cholecalciferol (VIT D3) 25 MCG TABLET (1,000 UNITS) PO (08:10)
[2021-02-26] MEDS: Nystatin Powder 15gm Bottle 1 APPLIC TOPICAL (08:12)
[2021-02-26 11:31] LABS: Bedside Glucose 355 mg/dL (70-110)
--- NOTE | 2021-02-26 11:46 | PCM.DC ---
Discharge Instructions Diet Discharge Diet: 1800 Calorie Control Diet Activity Discharge Activity: Return to Normal Activity Weight Bearing Status: Full weight bearing Additional Activity Instructions:: Quarantine for a total of 20 days after your first symptoms Follow Up Care Test Results: Test results from this visit will be discussed in further detail at your follow-up appointment, if applicable. Discharge Plan Admission Admit Date/Time: 02/20/21 14:51 Primary Reason for Your Visit: COVID 19 pneumonia Attending Provider: Can Morgan Primary Care Provider: Bernardo Coronel Instructions Additional Instructions / Restrictions: Get vaccinated in 2-3 months Quarantine for 20 days after your first COVID symptoms Use oxygen at 5 liters when ambulating, use oxygen at 3 liters at rest Discharge Orders/Prescriptions Prescriptions: New nystatin [Nyamyc] 100,000 unit/gram Powder 1 applic topical BID Qty: 1 RF: 0 glimepiride [Amaryl] 4 mg tablet 4 mg PO DAILY Qty: 30 RF: 0 dexamethasone 2 mg tablet 6 mg PO DAILY Qty: 9 RF: 0 Continued ascorbic acid-elderberry fruit [Airborne (elderberry)] 100-50 mg tablet,chewable 1 tab PO DAILY RF: 0 cholecalciferol (vitamin D3) 10 mcg (400 unit) capsule 10 mcg PO DAILY RF: 0 lisinopril 20 MG tablet 20 mg PO DAILY RF: 0 potassium citrate 10 MEQ tablet extended release 10 meq PO DAILY RF: 0 hydrochlorothiazide 25 MG tablet 25 mg PO DAILY RF: 0 Januvia 100 mg Tablet 100 mg PO DAILY RF: 0 metformin 500 MG tablet 500 mg PO BID Qty: 0 RF: 0 Referrals / Follow Up: Bernardo Coronel MD [Primary Care Provider] - In 1 Week Disposition Disposition (needs filled in before D/C Order can be placed): Home, Self Care
--- NOTE | 2021-02-26 12:01 | CASEMGMT ---
Pt qualifies for 3L at rest and 5L w/ exertion home oxygen at this time. Pt states preference for [facility] and order faxed to [facility] at this time. Pt updated on home oxygen and to keep oxygen level greater than 89%, voices understanding. Pt voices no further questions/concerns/needs. Janelle TIRADO CM
[2021-02-26] MEDS: Loperamide 2 MG Capsule 4 MG PO (16:04)
--- NOTE | 2021-02-26 17:27 | DS.PCM_ITS ---
Providers Date of Admission: 02/20/21 Date of Discharge: 02/26/21 Primary Care Physician: Dr. Bernardo Coronel MD Reason For Visit: RESPIRATORY FAILURE Diagnosis Discharge Diagnosis (1) Pneumonia due to 2019-nCoV: Status: Acute Code(s): U07.1 - COVID-19; J12.82 - Pneumonia due to coronavirus disease 2019 Plan: 1. COVID-19 pneumonia #2 acute hypoxic respiratory failure secondary to #1 #3 type 2 diabetes-under poor control #4 essential hypertension #5 Severe protein and caloric malnutrition in the context of acute illness related to poor appetite and Covid infection as evidenced by a 15 to 16 pound weight loss over 10 to 12 days and p.o. meeting less than 50 to 75% estimated nutritional needs-recommend to continue 2200-calorie consistent carbohydrate diet Medications at Discharge Home Medications hydrochlorothiazide 25 mg PO DAILY 04/18/15 lisinopril 20 mg PO DAILY 04/18/15 potassium citrate 10 meq PO DAILY 04/18/15 ascorbic acid 100 mg-elderberry fruit 50 mg chewable tablet 1 tab PO DAILY 03/13/20 cholecalciferol (vitamin D3) 10 mcg (400 unit) capsule 10 mcg PO DAILY 03/13/20 Januvia 100 mg PO DAILY 02/20/21 dexamethasone 6 mg PO DAILY #9 tab 02/26/21 glimepiride [Amaryl] 4 mg PO DAILY #30 tab 02/26/21 metformin 500 mg PO BID #0 tab 02/26/21 nystatin [Nyamyc] 1 applic TOPICAL BID #1 g 02/26/21 Hospital Course Operations None Procedures None Summary of Care Provided Minutes Spent on Discharge: 31 Hospital Course: This 60-year-old white male was seen at [facility] in the emergency room with complaints of shortness of breath, patient stated that he had a Covid test on February 12, 2021 which was positive, he monitors pulse ox at home and found it read 70% on room air. Work-up in the emergency room included a chest x-ray which showed bilateral interstitial infiltrates suggestive of COVID-19, patient required supplemental oxygen to maintain his pulse ox above 90%. Patient was admitted to PCU, he was placed on dexamethasone and he improved slowly during his hospitalization. Patient required oxygen at 5 L/min via nasal cannula when ambulating and 3 L of oxygen via nasal cannula at rest at the time of discharge on 02/26/2021. Patient was seen and examined on 02/26/2021: On examination he appeared in good health and spirits. Vital signs as documented. Skin warm and dry and without overt rashes. Neck without JVD, neck was supple, trachea midline, thyroid was normal. Lungs clear bilaterally, normal air movement was noted. Heart exam notable for regular rhythm, normal sounds and absence of murmurs, rubs or gallops. Abdomen unremarkable and without evidence of organomegaly, masses, or abdominal aortic enlargement. Bowel sounds are present, abdomen is not distended. Extremities nonedematous, no cyanosis was noted, no clubbing was noted. Neuro: Cranial nerves II through XII are grossly intact, no focal motor deficits were noted, sensation to light touch and pinprick intact, motor exam 5/5 throughout. Psych: Patient is alert and oriented x3, he does not appear anxious or depressed, he does not appear agitated. Patient was felt to be stable for discharge on 02/26/2021, he was expected to use his oxygen at home during activities and out of the house during activities and at rest both outside of his home and inside of his home as directed. Weight / BMI Weight Weight: 142.5 kg Body Mass Index (BMI) 44.4 ABG / Lab / Microbiology Data Result Diagrams: 02/22/21 05:10 02/25/21 07:08 Laboratory: Laboratory Results - last 24 hr 02/25/21 19:57: POC Glucose 408 H 02/26/21 06:31: POC Glucose 221 H 02/26/21 11:19: POC Glucose 355 H Microbiology: Microbiology 02/24/21 06:43 Sputum, Expectorated/Coughed Gram Stain - Final 02/24/21 06:43 Sputum, Expectorated/Coughed Respiratory Culture - Final 02/20/21 18:20 Interface Orders Streptococcus pneumoniae Antigen (M - Final 02/20/21 18:20 Urine, Clean Catch Legionella Antigen - Final D/C Instructions Discharge Diet: 1800 Calorie Control Diet Weight Bearing Status: Full weight bearing Additional Activity Instructions: Quarantine for a total of 20 days after your first symptoms Meaningful Use Info Meaningful Use Diagnoses (Choose all that apply): None applicable Discharge Plan Admission Admit Date/Time: 02/20/21 14:51 Primary Reason for Your Visit: COVID 19 pneumonia Attending Provider: Can Morgan Primary Care Provider: Bernardo Coronel Instructions Additional Instructions / Restrictions: Get vaccinated in 2-3 months Quarantine for 20 days after your first COVID symptoms Use oxygen at 5 liters when ambulating, use oxygen at 3 liters at rest Discharge Orders/Prescriptions Prescriptions: New nystatin [Nyamyc] 100,000 unit/gram Powder 1 applic topical BID Qty: 1 RF: 0 glimepiride [Amaryl] 4 mg tablet 4 mg PO DAILY Qty: 30 RF: 0 dexamethasone 2 mg tablet 6 mg PO DAILY Qty: 9 RF: 0 Continued ascorbic acid-elderberry fruit [Airborne (elderberry)] 100-50 mg tablet,chewable 1 tab PO DAILY RF: 0 cholecalciferol (vitamin D3) 10 mcg (400 unit) capsule 10 mcg PO DAILY RF: 0 lisinopril 20 MG tablet 20 mg PO DAILY RF: 0 potassium citrate 10 MEQ tablet extended release 10 meq PO DAILY RF: 0 hydrochlorothiazide 25 MG tablet 25 mg PO DAILY RF: 0 Januvia 100 mg Tablet 100 mg PO DAILY RF: 0 metformin 500 MG tablet 500 mg PO BID Qty: 0 RF: 0 Referrals / Follow Up: Bernardo Coronel MD [Primary Care Provider] - 03/07/21 3:20 am Disposition Disposition (needs filled in before D/C Order can be placed): Home, Self Care Charges/Coding Visit Charges Inpatient E&M: 33751 Disch Hosp
== END 2021-02-26 16:49 | disposition home or self-care (01) | DRG 177 ==
LOC: ED 14:41 → PCU 15:45
PROVIDERS: Admitting Provider Hospitalist; Emergency Provider Emergency Medicine; PCP Family Medicine; Visit Provider Internal Medicine
DX: U07.1 COVID-19 (principal); J12.82 Pneumonia due to coronavirus disease 2019; J96.01 Acute respiratory failure with hypoxia; E43 Unspecified severe protein-calorie malnutrition; Z68.42 Body mass index [BMI] 45.0-49.9, adult; E11.65 Type 2 diabetes mellitus with hyperglycemia; I10 Essential (primary) hypertension; E66.01 Morbid (severe) obesity due to excess calories; I44.0 Atrioventricular block, first degree; Z79.84 Long term (current) use of oral hypoglycemic drugs; Z79.899 Other long term (current) drug therapy; Z87.891 Personal history of nicotine dependence
CPT/HCPCS: 36415; 71045; 71275; 80048; 80053; 82962; 83036; 83605; 83615; 83735; 84145; 85025; 85379; 85610; 87070; 87205; 87449; 93005; 94640; 94667; 94668; 97110; 97116; 97162; 97530; 97802; 97803; 99251; 99284; Q9967; A4216; G0463; J1940

== ENCOUNTER → 2021-06-26 | Outpatient (CLI) | payer OTHER, SELFPAY | END | disposition home or self-care (01) | PROVIDERS: PCP Family Medicine; Visit Provider Internal Medicine Pulmonary Disease | DX: G47.10 Hypersomnia, unspecified (principal) | CPT/HCPCS: 95811 ==

== ENCOUNTER → 2023-05-22 | Outpatient (CLI) | payer OTHER, SELFPAY ==
[2023-05-22 15:00] LABS: Absolute Lymphocyte Count 3.45 X10^3/uL (0.83-4.51); Absolute Neutrophil Count 4.3 X10^3/uL (2.0-7.7); Basophil# 0.05 X10^3/uL; Basophil% 0.6 % (0-1); Eosinophil# 0.21 X10^3/uL; Eosinophils% 2.5 % (0-5); Hematocrit 47.3 % (40-54); Hemoglobin 14.5 g/dL (13.0-16.5); Lymphocyte # 3.45 X10^3/ul (0.83-4.51); Lymphocyte % 40.4 % (19-41); Mean Corp Hgb Conc 30.7 g/dL (32-36); Mean Corpuscular Hgb 25.7 pg (27.0-32.0); Mean Corpuscular Volume 83.9 fL (80-94); Mean Platelet Vol. 12.1 fl (6.2-12.0); Monocyte# 0.53 X10^3/uL; Monocyte% 6.2 % (0-10); NRBC Flagged by Analyzer 0 % (0-5); Neutrophil # 4.26 X10^3/uL (2.7-7.7); Neutrophil % 49.8 % (47-70); Platelet Count 199 K/mm3 (150-450); RBC Distribution Width CV 14.7 % (11.6-14.6); RBC Distribution Width SD 44.6 fl (35.1-43.9); Red Blood Count 5.64 M/mm3 (4.6-6.2); White Blood Count 8.5 K/mm3 (4.4-11.0)
[2023-05-22 15:26] LABS: Microalbumin,Random Urine 8.6 mg/L (NO RANGE EST.); Microalbumin:Creatinine Ratio 13.4 mg/g CRE (<30 mg/g CRE)
[2023-05-22 15:43] LABS: Anion Gap 8 (5-15); BUN 25 mg/dL (7-18); BUN/Creat Ratio 22.5 RATIO (10-20); Calcium,Total 9.3 mg/dL (8.5-10.1); Chloride 104 mmol/L (98-107); Cholesterol 121 mg/dL (200); Creatinine, Serum 1.11 mg/dL (0.70-1.30); EST Glomerular Filtration Rate 71 mL/min (>60); Est Glom Filt Rate - Afr Amer 86 mL/min (>60); Glucose 192 mg/dL (74-106); High Density Lipoprotein 45 mg/dL; Potassium 3.7 mmol/L (3.5-5.1); Sodium Level 141 mmol/L (136-145); Triglycerides 136 mg/dL; Very Low Density Lipoprotein 27 mg/dL (5-40)
== END | disposition home or self-care (01) ==
LOC: LAB 13:19
PROVIDERS: PCP Family Medicine; Referring Provider Family Medicine; Visit Provider Family Medicine
DX: Z13.220 Encounter for screening for lipoid disorders (principal); E11.65 Type 2 diabetes mellitus with hyperglycemia
CPT/HCPCS: 36415; 80048; 80061; 82043; 82570; 85025